=== PATIENT | female | born 1950 | race Caucasian/White ===

== ENCOUNTER → 2021-03-20 | Outpatient (CLI) | payer MEDICARE ==
--- NOTE | 2021-03-20 08:53 | NM ---
EXAMINATION TYPE: NM hepatobiliary w CCK DATE OF EXAM: 03/20/2021 COMPARISON: Ultrasound 06/18/2016 HISTORY: Biliary dyskinesia TECHNIQUE: After the intravenous administration of 4.4 mCi Tc 99m Mebrofenin hepatobiliary scintigrap hy is performed. Immediate images post injection. FINDINGS: There is satisfactory initial accumulation of tracer by the liver. The gallbladder is visualized wit hin 2 minutes. The small bowel activity is noted within 20 minutes. At one hour CCK was administere d, patient was injected with 1.6 mcg of Kinevac, and gallbladder ejection fraction is calculated at 9 5 %, in the normal range. Therefore there is no scintigraphic evidence of cystic or common bile duct obstruction to suggest acute cholecystitis or gallbladder dyskinesia. IMPRESSION: Exam is within normal limits.
== END | disposition home or self-care (01) ==
LOC: RADNMMAIN 06:42
PROVIDERS: ATTEND Surgery
DX: K82.8 Other specified diseases of gallbladder (principal)
CPT/HCPCS: 78227; A9537; J2805

== ENCOUNTER 2021-04-14 06:55 | Day surgery (SDC) | payer MEDICARE ==
[2021-04-10 17:13] VITALS: BMI 34.0
[~2021-04-14 06:55] MED LIST: ACETAMINOPHEN TAB 500 MG TAB PO PRN; CLINDAMYCIN 900 MG in DEXTROSE 5% IN WATER 50 ML IVPB PRN; GENTAMICIN 400 MG in SODIUM CHLORIDE 0.9% 100 ML IVPB ONE; HEPARIN SODIUM,PORCINE/PF 5,000 UNIT/0.5 ML SYRINGE SQ PRN; LACTATED RINGERS 1,000 ML IV SCH; LIDOCAINE 1% (10MG/ML) FOR IV START INTRADERMA PRN
[2021-04-14 07:28] VITALS: RESP 16
[2021-04-14] MEDS ORDERED: ONDANSETRON 4 MG/2 ML VIAL ONE (07:47)
[2021-04-14] MEDS ORDERED: DEXAMETHASONE SOD PHOSPHATE 4 MG/ML 1 ML VIAL IVP ONE (08:07)
--- NOTE | 2021-04-14 08:33 | P.GSHP ---
History of Present Illness H&P Date: 04/14/21 Chief Complaint: Right upper quadrant pain This a 70-year-old female who presents today for laparoscopic cholecystectomy. Patient's complaints were quadrant pain. Her recent HIDA scan shows an elevated ejection fraction consistent with chronic cholecystitis. And biliary d ysfunction. Past Medical History Past Medical History: Asthma, Chest Pain / Angina, COPD, Fibromyalgia, GERD/Reflux, Hyperlipidemia, Hypertension, Liver Disease, Musculoskeletal Disorder, Osteoarthritis (OA), Seizure Disorder, Sleep Apnea/CPAP/BIPAP, Thyroid Disorder Additional Past Medical History / Comment(s): Heart murmur, leaky valve. Vertigo, Lt ear [facility]. Hypothyroid, Fatty liver, "kidney failure 08/2019." Last seizure 2016. O2 @ 3-4 L HS. Chronic back pain, hx injections. Edema BLE. History of Any Multi-Drug Resistant Organisms: None Reported Past Surgical History: Appendectomy, Back Surgery, Breast Surgery, Heart Catheterization, Hysterectomy, Joint Replacement, Orthopedic Surgery Additional Past Surgical History / Comment(s): abd adhesion repair x 3, breast lumpectomies for blood clots 1974 in office, back injections Back surgery x2, Cervical fusion 2017. Lt Total shoulder, bilat Total knees. Past Anesthesia/Blood Transfusion Reactions: No Reported Reaction Additional Past Anesthesia/Blood Transfusion Reaction / Comment(s): STATES SHE IS CLAUSTROPHOBIC Smoking Status: Former smoker - Past Family History Father Family Medical History: Cancer, Diabetes Mellitus, Renal Disease Additional Family Medical History / Comment(s): Passed from renal failure in 1995 Mother Family Medical History: Blood Disorder, CVA/TIA, Diabetes Mellitus Additional Family Medical History / Comment(s): Passed from anemia in 1998 Brother(s) Family Medical History: Coronary Artery Disease (CAD), Diabetes Mellitus Additional Family Medical History / Comment(s): post op from triple bypass surgery in 1994 Sister(s) Family Medical History: Cancer Additional Family Medical History / Comment(s): from esophagus cancer in Sep 2013 Medications and Allergies Home Medications Medication Instructions Recorded Confirmed Type Albuterol Sulfate [Proair Hfa] 2 puff INHALATION Q4HR PRN 12/28/13 04/10/21 History Atenolol 50 mg PO DAILY@1200 12/28/13 04/10/21 History Levothyroxine Sodium [Synthroid] 88 mcg PO QAM 12/28/13 04/10/21 History Methylphenidate HCl [Ritalin] 20 mg PO 0300,1500 12/28/13 04/10/21 History Atorvastatin [Lipitor] 40 mg PO HS 05/09/15 04/10/21 History Potassium Chloride [K-Tab ER] 10 meq PO DAILY@1200 05/09/15 04/10/21 History Vitamin B Complex 1 each PO DAILY 05/09/15 04/10/21 History amLODIPine [Norvasc] 5 mg PO HS 05/09/15 04/10/21 History Acetaminophen [Tylenol Extra 500 mg PO DIRECTED PRN 04/10/21 04/10/21 History Strength] Diclofenac Sodium [Voltaren] 75 mg PO BID 04/10/21 04/10/21 History Estradiol [Estrace] 2 mg PO DAILY 04/10/21 04/10/21 History Ferrous Sulfate [Feosol] 325 mg PO DAILY@1200 04/10/21 04/10/21 History Furosemide [Lasix] 20 mg PO DAILY 04/10/21 04/10/21 History HYDROcodone/APAP 10-325MG [[place] 1 tab PO QID 04/10/21 04/10/21 History 10] Isosorbide Mononitrate ER [Imdur] 30 mg PO DAILY 04/10/21 04/10/21 History LORazepam [Ativan] 1 mg PO BID PRN 04/10/21 04/10/21 History Meclizine [Antivert] 25 mg PO TID 04/10/21 04/10/21 History Multivitamins, Thera [Multivitamin 1 tab PO DAILY 04/10/21 04/10/21 History (formulary)] Nitroglycerin Sl Tabs [Nitrostat] 0.4 mg SUBLINGUAL Q5M PRN 04/10/21 04/10/21 History Oxybutynin Chloride 5 mg PO BID 04/10/21 04/10/21 History Pantoprazole Sodium [Protonix] 40 mg PO DAILY 04/10/21 04/10/21 History Venlafaxine HCl [Effexor] 37.5 mg PO HS 04/10/21 04/10/21 History busPIRone HCL [Buspar] 7.5 mg PO TID 04/10/21 04/10/21 History cloNIDine HCL [Catapres] 0.2 mg PO TID 04/10/21 04/10/21 History tiZANidine [Zanaflex] 4 mg PO BID PRN 04/10/21 04/10/21 History traZODone HCL 50 - 1,000 mg PO HS PRN 04/10/21 04/10/21 History Allergies Allergy/AdvReac Type Severity Reaction Status Date / Time Penicillins Allergy Dyspnea, Verified 04/14/21 07:22 RASH basil AdvReac Dyspnea Verified 04/14/21 07:22 gabapentin [From Neurontin] AdvReac Hallucinati Verified 04/14/21 07:22 ons RUBBING ALCOHOL AdvReac Unknown Dyspnea IF Uncoded 04/14/21 07:22 SHE INHALES IT. powder in gloves AdvReac Dyspnea Uncoded 04/14/21 07:22 Surgical - Exam Vital Signs Temp Pulse Resp BP Pulse Ox 97.4 F L 64 16 173/79 98 04/14/21 07:27 04/14/21 07:27 04/14/21 07:27 04/14/21 07:27 04/14/21 07:27 - General well developed, well nourished, no distress - Eyes PERRL - ENT normal pinna - Neck no masses - Respiratory normal expansion - Cardiovascular Rhythm: regular - Abdomen Abdomen: soft, non tender Assessment and Plan Assessment: Right upper quadrant pain Abnormal HIDA scan Chronic cystitis We'll perform laparoscopic cholecystectomy
[2021-04-14] MEDS ORDERED: fentaNYL (PF) 50 MCG/ML 2 ML AMP ONE (08:59)
[2021-04-14] MEDS ORDERED: KETOROLAC 15 MG/ML 1 ML VIAL ONE (08:59)
[2021-04-14] MEDS ORDERED: SUCCINYLCHOLINE CHLORIDE 100 MG/5 ML SYR IV ONE (08:59)
[2021-04-14] MEDS ORDERED: PROPOFOL 10 MG/ML 20 ML VIAL IV ONE (08:59)
[2021-04-14] MEDS ORDERED: MIDAZOLAM 2 MG/2 ML VIAL ONE (08:59)
[2021-04-14] MEDS ORDERED: HYDROmorphone (PF) 1 MG/ML ONE (08:59)
[2021-04-14] MEDS ORDERED: NEOSTIGMINE 1 MG/ML 10 ML VIAL ONE (08:59)
[2021-04-14] MEDS ORDERED: GLYCOPYRROLATE 0.2 MG/ML 2 ML VIAL ONE (08:59)
[2021-04-14] MEDS ORDERED: LIDOCAINE 1% INJ 10MG/ML (20 ML MDV) ONE (08:59)
[2021-04-14] MEDS ORDERED: ROCURONIUM 10 MG/ML (5 ML VIAL) IV ONE (08:59)
[2021-04-14] MEDS ORDERED: BUPIVACAINE (PF) 0.5% 30 ML VIAL SQ ONE ×2 (09:09→09:34)
--- NOTE | 2021-04-14 09:54 | P.OP ---
Date of Procedure: 04/14/21 Preoperative Diagnosis: Cholecystitis Postoperative Diagnosis: Cholecystitis Procedure(s) Performed: Laparoscopic cholecystectomy Anesthesia: SANYA Surgeon: Galo Lacey Estimated Blood Loss (ml): 5 Pathology: other (Gallbladder) Condition: stable Disposition: PACU Description of Procedure: The patient was placed on the operating table. The patient received a general endotracheal tube anesthesia. The patients abdomen was prepped and draped in the usual sterile fashion. Through an infraumbilical stab incision, the fascia of the anterior abdominal wall was grasped with a pair of Kochers and then the Veress needle was placed in the peritoneal cavity. Position of the Veress needle was confirmed with positive drop test. The abdomen was then insufflated. After adequate insufflation, the 10 mm trocar was placed in the peritoneal cavity. Following this the laparoscope was placed in the peritoneal cavity. The patient was placed in the head-up, right side up position and then a 5 mm trocar was placed in the right lateral and right subcostal position under direct visualization. A 8 mm trocar was placed in the epigastric position. The gallbladder was grasped in the fundus and infundibulum. Traction on the gallbladder was placed in the lateral and the cephalad positions. The triangle of Calot was visualized.. The cystic duct was bluntly dissected until the union of the cystic duct and common bile duct was seen. A critical view of safety was achieved. The cystic duct was then divided and sealed with the Harmonic scissors. A PDS Endoloop was then placed throughout the cystic duct stump. The cystic artery divided and sealed with the Harmonic scissors. The gallbladder was then removed from the liver bed using Harmonic scissors. The gallbladder was then extracted through the epigastric port site. Operative field was checked for any bleeding spots and Harmonic scissors was used to coagulate the liver bed. The abdomen was irrigated. The trocars were removed. The skin was closed using interrupted 3-0 Vicryl suture. Dermabond dressing were applied. The patient tolerated the procedure well.
[2021-04-14 10:10] VITALS: TEMP 97
[2021-04-14] MEDS ORDERED: HYDROmorphone 0.5 MG/0.5 ML SYRINGE IVP ONE ×2 (10:25→10:45)
[2021-04-14] MEDS ORDERED: hydrALAZINE HCL 20 MG/ML 1 ML VIAL ONE (10:52)
[2021-04-14] MEDS ORDERED: hydrALAZINE HCL 20 MG/ML 1 ML VIAL IV ONE (10:54)
[2021-04-14 11:32] VITALS: PULSE 81
[2021-04-14 12:14] VITALS: BP 193/85
[2021-04-14] MEDS ORDERED: GENTAMICIN 80 MG/2 ML (MDV) VIAL ONE (23:59)
[2021-04-14] MEDS ORDERED: SODIUM CHLORIDE 0.9% 100 ML BAG ONE (23:59)
== END 2021-04-14 12:21 | disposition home or self-care (01) ==
LOC: OR 06:55
PROVIDERS: ATTEND Surgery
DX: K81.1 Chronic cholecystitis (principal); M19.90 Unspecified osteoarthritis, unspecified site; M79.7 Fibromyalgia; N30.20 Other chronic cystitis without hematuria; Z79.1 Long term (current) use of non-steroidal anti-inflammatories (NSAID); Z79.899 Other long term (current) drug therapy; Z82.49 Family history of ischemic heart disease and other diseases of the circulatory system; Z83.3 Family history of diabetes mellitus; K76.0 Fatty (change of) liver, not elsewhere classified; K21.9 Gastro-esophageal reflux disease without esophagitis; J44.9 Chronic obstructive pulmonary disease, unspecified; I10 Essential (primary) hypertension; G40.909 Epilepsy, unspecified, not intractable, without status epilepticus; E78.5 Hyperlipidemia, unspecified; E03.9 Hypothyroidism, unspecified; Z87.891 Personal history of nicotine dependence; Z88.0 Allergy status to penicillin; Z88.8 Allergy status to other drugs, medicaments and biological substances; Z90.49 Acquired absence of other specified parts of digestive tract
CPT/HCPCS: 47562; 88304; J2250; J0360; J1100; J2710; J2405; J2001; J3010; J1580; J1170 ×2; J1885; J0330; J2704; J1644

== ENCOUNTER → 2021-10-06 | Outpatient (CLI) | payer MEDICARE ==
--- NOTE | 2021-10-06 08:33 | CT ---
EXAMINATION TYPE: CT lumbar spine wo con DATE OF EXAM: 10/06/2021 COMPARISON: None HISTORY: Lumbar disc disease CT DLP: 737.[address] of the lumbar spine was performed. Bone and soft tissue window settings are submitted as well as coronal and sagittal reconstructions. L1-L2: Normal disc space height. No disc herniation protrusion or central stenosis. No facet joint arthropathy. No evidence for foraminal encroachment. L2-L3: Severe degenerative disc space narrowing with endplate sclerosis as well as ventral and dorsal spondylosis. Hypertrophic change of the facet joints and hypertrophy of ligamentum flavum as well as associated disc bulging resulting in mild central stenosis. L3-L4: Severe degenerative disc space narrowing with endplate sclerosis as well as ventral and dorsal spondylosis. Hypertrophic change of the facet joints and hypertrophy of ligamentum flavum as well as associated disc bulging resulting in mild central stenosis. L4-L5: Postlaminectomy change and posterior stabilizing metallic prosthesis. Severe degenerative disc space narrowing with endplate sclerosis as well as ventral and dorsal spondylosis. Hypertrophic zayas ge of the facet joints and hypertrophy of ligamentum flavum as well as associated disc bulging result ing in mild central stenosis. L5-S1: Moderate degenerative disc space narrowing. Left paracentral disc bulge resulting in left late ral recess stenosis and foraminal encroachment. No evidence for central stenosis. No paraspinal masses are identified. Lumbar segments are free if fracture. IMPRESSION: 1. Multilevel degenerative multilevel mild central stenosis. Postoperative changes at L4-5.
== END | disposition home or self-care (01) ==
LOC: RADCTMAIN 07:12
PROVIDERS: ATTEND Family Medicine
DX: M48.061 Spinal stenosis, lumbar region without neurogenic claudication (principal); M51.36 Other intervertebral disc degeneration, lumbar region
CPT/HCPCS: 72131

== ENCOUNTER → 2022-01-28 | Outpatient (CLI) | payer MEDICARE ==
--- NOTE | 2022-01-28 11:46 | MR ---
EXAMINATION TYPE: MR lumbar spine wo/w con DATE OF EXAM: 01/28/2022 COMPARISON: Lumbar MRI dated 01/01/2014 CT 12/10/2021 from outside institution HISTORY: DISC DEGENERATION, LUMBAR REGION TECHNIQUE: Multiplanar, multisequence images of the lumbar spine were acquired without and with 7 mL intravenous Gadavist gadolinium contrast. L1-L2: Normal disc appearance without desiccation. No herniation, protrusion or disc bulging. No ca nal stenosis is present. Foramina are patent bilaterally. L2-L3: Posterior broad-based disc bulge, extension endplate disc complex causes anterior mass effect on the thecal sac. There is facet arthropathy with hypertrophy ligamentum flavum causing some posteri or lateral mass effect on the thecal sac. L3-L4: Posterior broad-based disc bulge causes mild anterior mass effect on the thecal sac. Circumfer ential extension endplate disc complex encroaches upon the inferior aspect of the foramina. There is facet arthropathy with hypertrophy ligamentum flavum causing posterior lateral mass effect on the the [place] sac. L4-L5: Posterior broad-based disc bulge extends circumferentially, endplate disc complex encroaches u brandi the foramina bilaterally, only mild mass effect present at anterior thecal sac. Facet arthropathy change is present, question some encroachment towards the left lateral recess. Suspect some enhancem ent along the nerve root, there is some anterolateral mass effect on the thecal sac towards the left, possible granulation tissue, sagittal image 7 of series 601 shows an oval focus of signal change pos terior to the inferior aspect of the L4 vertebral body, difficult to exclude a sequestered fragment, axial image #10 towards the lateral recess. L5-S1: There is mild posterior broad-based disc bulge. Circumferential extension endplate disc comple x does encroach upon the foramina bilaterally. Facet arthropathy changes are present, there is some e ncroachment on the lateral recess, hypertrophy ligamentum flavum causes some posterior lateral mass e ffect on the thecal sac, laminectomy present on the left. Lumbar segments are intact. No paraspinal masses are identified. Conus medullaris has a normal appe arance. There is no significant spinal stenosis. Lumbar vertebral bodies show preserved height. There is multilevel spondylosis with endplate discogenic marrow signal change, loss of disc height is grea test at L2-3, L3-4 and L4-5. Susceptibility artifact is present posterior to the L4-5 level due to elham sanderson's metallic posterior elements device placement. IMPRESSION: Postop changes, degenerative disc disease, facet arthropathy, multilevel foraminal encroachment as de scribed, granulation tissue, difficult to exclude sequestered fragment posterior to the L4 vertebral body as described
== END | disposition home or self-care (01) ==
LOC: RADMRIMAIN 08:33
PROVIDERS: ATTEND Family Medicine
DX: M51.36 Other intervertebral disc degeneration, lumbar region (principal); M47.816 Spondylosis without myelopathy or radiculopathy, lumbar region
CPT/HCPCS: 72158; A9585

== ENCOUNTER 2022-03-05 02:14 | Emergency (ER) | payer MEDICARE ==
[2022-03-05 02:29] VITALS: RESP 18; TEMP 97
[2022-03-05] MEDS ORDERED: SODIUM CHLORIDE 0.9% 1,000 ML IV STA (03:07)
--- NOTE | 2022-03-05 03:10 | ED ---
Recheck HPI - General Chief Complaint: Recheck/Abnormal Lab/Rx Stated Complaint: Low BP, confusion Time Seen by Provider: 03/05/22 02:38 Source: patient, RN notes reviewed, old records reviewed Mode of arrival: ambulatory Limitations: no limitations - History of Present Illness Initial Comments: This is a 69-year-old female to the emergency department for evaluation patient is rechecking for abnormal blood pressure. Patient presents today for evaluat ion of both high and low blood pressures. Patient has no recent change in medications. Occasionally does get headaches blurry vision and dizziness. She feels like she was given a pass out feels like she was given a pass out earlier today. Prior to arrival she had no chest pain or shortness of breath no current chest pain or shortness of breath especially MD Complaint: other (Abnormal blood pressure) -: days(s) Returns Today for: persistent/worsening pain related to initial visit Symptoms Since Prior Visit: worsening pain Context: planned re-check Associated Symptoms: none Treatments Prior to Arrival: Given Pain Meds on - Related Data Home Medications Medication Instructions Recorded Confirmed Albuterol Sulfate [Proair Hfa] 2 puff INHALATION Q4HR PRN 12/28/13 04/10/21 Atenolol 50 mg PO DAILY@1200 12/28/13 04/10/21 Levothyroxine Sodium [Synthroid] 88 mcg PO QAM 12/28/13 04/10/21 Methylphenidate HCl [Ritalin] 20 mg PO 0300,1500 12/28/13 04/10/21 Atorvastatin [Lipitor] 40 mg PO HS 05/09/15 04/10/21 Potassium Chloride [K-Tab ER] 10 meq PO DAILY@1200 05/09/15 04/10/21 Vitamin B Complex 1 each PO DAILY 05/09/15 04/10/21 amLODIPine [Norvasc] 5 mg PO HS 05/09/15 04/10/21 Acetaminophen [Tylenol Extra 500 mg PO DIRECTED PRN 04/10/21 04/10/21 Strength] Diclofenac Sodium [Voltaren] 75 mg PO BID 04/10/21 04/10/21 Ferrous Sulfate [Feosol] 325 mg PO DAILY@1200 04/10/21 04/10/21 Furosemide [Lasix] 20 mg PO DAILY 04/10/21 04/10/21 HYDROcodone/APAP 10-325MG [[place] 1 tab PO QID 04/10/21 04/10/21 10] Isosorbide Mononitrate ER [Imdur] 30 mg PO DAILY 04/10/21 04/10/21 LORazepam [Ativan] 1 mg PO BID PRN 04/10/21 04/10/21 Meclizine [Antivert] 25 mg PO TID 04/10/21 04/10/21 Multivitamins, Thera [Multivitamin 1 tab PO DAILY 04/10/21 04/10/21 (formulary)] Nitroglycerin Sl Tabs [Nitrostat] 0.4 mg SUBLINGUAL Q5M PRN 04/10/21 04/10/21 Oxybutynin Chloride 5 mg PO BID 04/10/21 04/10/21 Pantoprazole Sodium [Protonix] 40 mg PO DAILY 04/10/21 04/10/21 Venlafaxine HCl [Effexor] 37.5 mg PO HS 04/10/21 04/10/21 busPIRone HCL [Buspar] 7.5 mg PO TID 04/10/21 04/10/21 cloNIDine HCL [Catapres] 0.2 mg PO TID 04/10/21 04/10/21 estradioL [Estrace] 2 mg PO DAILY 04/10/21 04/10/21 tiZANidine [Zanaflex] 4 mg PO BID PRN 04/10/21 04/10/21 traZODone HCL 50 - 1,000 mg PO HS PRN 04/10/21 04/10/21 Previous Rx's Medication Instructions Recorded Acetaminophen Tab [Tylenol] 650 mg PO Q6H #30 tab 04/14/21 Docusate [Colace] 100 mg PO BID #20 capsule 04/14/21 Ibuprofen [Motrin] 600 mg PO Q6HR PRN #40 tab 04/14/21 oxyCODONE HCL [OxyIR] 5 mg PO Q6H PRN 3 Days #10 tab 04/14/21 Allergies Allergy/AdvReac Type Severity Reaction Status Date / Time Penicillins Allergy Dyspnea, Verified 03/05/22 02:24 RASH basil AdvReac Dyspnea Verified 03/05/22 02:24 gabapentin [From Neurontin] AdvReac Hallucinati Verified 03/05/22 02:24 ons RUBBING ALCOHOL AdvReac Unknown Dyspnea IF Uncoded 03/05/22 02:24 SHE INHALES IT. powder in gloves AdvReac Dyspnea Uncoded 03/05/22 02:24 Review of Systems ROS Statement: Those systems with pertinent positive or pertinent negative responses have been documented in the HPI. ROS Other: All systems not noted in ROS Statement are negative. Past Medical History Past Medical History: Asthma, Chest Pain / Angina, COPD, Fibromyalgia, GERD/Reflux, Hyperlipidemia, Hypertension, Liver Disease, Musculoskeletal Disorder, Osteoarthritis (OA), Seizure Disorder, Sleep Apnea/CPAP/BIPAP, Thyroid Disorder Additional Past Medical History / Comment(s): Heart murmur, leaky valve. Vertigo, Lt ear [place]. Hypothyroid, Fatty liver, "kidney failure 08/2019." Last seizure 2016. O2 @ 3-4 L HS. Chronic back pain, hx injections. Edema BLE. History of Any Multi-Drug Resistant Organisms: None Reported Past Surgical History: Appendectomy, Back Surgery, Breast Surgery, Heart Catheterization, Hysterectomy, Joint Replacement, Orthopedic Surgery Additional Past Surgical History / Comment(s): abd adhesion repair x 3, breast lumpectomies for blood clots 1974 in office, back injections Back surgery x2, Cervical fusion 2017. Lt Total shoulder, bilat Total knees. Past Anesthesia/Blood Transfusion Reactions: No Reported Reaction Additional Past Anesthesia/Blood Transfusion Reaction / Comment(s): STATES SHE IS CLAUSTROPHOBIC Past Psychological History: ADD/ADHD, Anxiety, Depression Smoking Status: Former smoker Past Alcohol Use History: None Reported Past Drug Use History: None Reported - Past Family History Father Family Medical History: Cancer, Diabetes Mellitus, Renal Disease Additional Family Medical History / Comment(s): Passed from renal failure in 1995 Mother Family Medical History: Blood Disorder, CVA/TIA, Diabetes Mellitus Additional Family Medical History / Comment(s): Passed from anemia in 1998 Brother(s) Family Medical History: Coronary Artery Disease (CAD), Diabetes Mellitus Additional Family Medical History / Comment(s): post op from triple bypass surgery in 1994 Sister(s) Family Medical History: Cancer Additional Family Medical History / Comment(s): from esophagus cancer in Sep 2013 General Exam Limitations: no limitations General appearance: alert, in no apparent distress Head exam: Present: atraumatic, normocephalic, normal inspection Eye exam: Present: normal appearance, PERRL, EOMI. Absent: scleral icterus, conjunctival injection, periorbital swelling ENT exam: Present: normal exam, mucous membranes moist Neck exam: Present: normal inspection. Absent: tenderness, meningismus, lym phadenopathy Respiratory exam: Present: normal lung sounds bilaterally. Absent: respiratory distress, wheezes, rales, rhonchi, stridor Cardiovascular Exam: Present: regular rate, normal rhythm, normal heart sounds. Absent: systolic murmur, diastolic murmur, rubs, gallop, clicks GI/Abdominal exam: Present: soft, normal bowel sounds. Absent: distended, tenderness, guarding, rebound, rigid Extremities exam: Present: normal inspection, full ROM, normal capillary refill. Absent: tenderness, pedal edema, joint swelling, calf tenderness Back exam: Present: normal inspection Neurological exam: Present: alert, oriented X3, CN II-XII intact Psychiatric exam: Present: normal affect, normal mood Skin exam: Present: warm, dry, intact, normal color. Absent: rash Course Vital Signs 03/05/22 03/05/22 03/05/22 02:24 03:48 05:07 Temperature 97.0 F L 97.0 F L Pulse Rate 64 75 Respiratory 18 18 18 Rate Blood Pressure 154/72 130/74 113/65 O2 Sat by Pulse 98 98 Oximetry - Reevaluation(s) Reevaluation #1: 03/05/22 03:10 Medical record is reviewed Reevaluation #2: 03/05/22 Patient informed of results and questions answered Reevaluation #3: 03/05/22 Patient feels improved here in the ER Medical Decision Making - Medical Decision Making 71 female to the emergency department for evaluation of high blood pressure. Patient given long conversation regarding elevated blood pressure treatment. Patient will be discharged home to follow primary care - Lab Data Result diagrams: 03/05/22 03:30 03/05/22 03:30 Lab Results 03/05/22 03/05/22 03/05/22 Range/Units 03:30 03:30 03:30 WBC 10.3 (3.8-10.6) k/uL RBC 4.28 (3.80-5.40) m/uL Hgb 13.4 (11.4-16.0) gm/dL Hct 39.2 (34.0-46.0) % MCV 91.6 (80.0-100.0) fL MCH 31.3 (25.0-35.0) pg MCHC 34.1 (31.0-37.0) g/dL RDW 13.3 (11.5-15.5) % Plt Count 292 (150-450) k/uL MPV 7.5 Neutrophils % 77 % Lymphocytes % 14 % Monocytes % 4 % Eosinophils % 3 % Basophils % 0 % Neutrophils # 7.9 H (1.3-7.7) k/uL Lymphocytes # 1.5 (1.0-4.8) k/uL Monocytes # 0.4 (0-1.0) k/uL Eosinophils # 0.3 (0-0.7) k/uL Basophils # 0.0 (0-0.2) k/uL Sodium 134 L (137-145) mmol/L Potassium 4.8 (3.5-5.1) mmol/L Chloride 102 (98-107) mmol/L Carbon Dioxide 24 (22-30) mmol/L Anion Gap 8 mmol/L BUN 44 H (7-17) mg/dL Creatinine 1.62 H (0.52-1.04) mg/dL Est GFR (CKD-EPI)AfAm 37 (>60 ml/min/1.73 sqM) Est GFR (CKD-EPI)NonAf 32 (>60 ml/min/1.73 sqM) Glucose 116 H (74-99) mg/dL Calcium 9.4 (8.4-10.2) mg/dL Phosphorus 5.7 H (2.5-4.5) mg/dL Magnesium 1.6 (1.6-2.3) mg/dL Total Bilirubin 0.5 (0.2-1.3) mg/dL AST 27 (14-36) U/L ALT 16 (4-34) U/L Alkaline Phosphatase 67 (38-126) U/L NT-Pro-B Natriuret Pep 399 pg/mL Total Protein 6.7 (6.3-8.2) g/dL Albumin 4.1 (3.5-5.0) g/dL Disposition Clinical Impression: Hypertension Disposition: HOME SELF-CARE Condition: Good Instructions (If sedation given, give patient instructions): Hypertension (ED) Is patient prescribed a controlled substance at d/c from ED?: No Referrals: Panfilo Riggs MD [Primary Care Provider] - 1-2 days Time of Disposition: 05:30
--- NOTE | 2022-03-05 03:33 | CT ---
EXAM: CT Head Without Intravenous Contrast CLINICAL HISTORY: ITS.REASON CT Reason: weakness TECHNIQUE: Axial computed tomography images of the head/brain without intravenous contrast. CTDI is 49.27 mGy and DLP is 1111.4 mGy-cm. This CT exam was performed using one or more of the following dose reduction techniques: automated exposure control, adjustment of the mA and/or kV according to patient size, and/or use of iterative reconstruction technique. COMPARISON: No relevant prior studies available. FINDINGS: Brain: Mild volume loss with prominent ventricles and sulci. Mild periventricular white matter hypoattenuation likely reflects chronic small vessel disease. No hemorrhage. Ventricles: Unremarkable. No ventriculomegaly. Bones/joints: Unremarkable. No acute fracture. Soft tissues: Unremarkable. Sinuses: Mild paranasal sinus mucosal thickening. No fluid levels. Mastoid air cells: Unremarkable as visualized. No mastoid effusion. IMPRESSION: No evidence of acute intracranial abnormality.
[2022-03-05 03:35] LABS: Basophils % (A) 0 %; Eosinophils # (A) 0.3 k/uL (0-0.7); Eosinophils % (A) 3 %; HCT 39.2 % (34.0-46.0); HGB 13.4 gm/dL (11.4-16.0); Lymphocytes # (A) 1.5 k/uL (1.0-4.8); Lymphocytes % (A) 14 %; MCH 31.3 pg (25.0-35.0); MCHC 34.1 g/dL (31.0-37.0); MCV 91.6 fL (80.0-100.0); Mean Platelet Volume 7.5; Monocytes # (A) 0.4 k/uL (0-1.0); Monocytes % (A) 4 %; Neutrophils # (A) 7.9 k/uL (1.3-7.7); Neutrophils % (A) 77 %; Platelet Count 292 k/uL (150-450); RBC 4.28 m/uL (3.80-5.40); RDW 13.3 % (11.5-15.5); WBC 10.3 k/uL (3.8-10.6)
[2022-03-05 04:20] LABS: Albumin 4.1 g/dL (3.5-5.0); Calcium 9.4 mg/dL (8.4-10.2); Total Bilirubin 0.5 mg/dL (0.2-1.3); Total Protein 6.7 g/dL (6.3-8.2)
[2022-03-05 04:30] LABS: Magnesium 1.6 mg/dL (1.6-2.3); Phosphorus 5.7 mg/dL (2.5-4.5); Potassium 4.8 mmol/L (3.5-5.1)
[2022-03-05 05:09] VITALS: BP 113/65; PULSE 75
== END 2022-03-05 05:08 | disposition home or self-care (01) ==
LOC: EC 02:14
DX: I10 Essential (primary) hypertension (principal); J44.9 Chronic obstructive pulmonary disease, unspecified; Z79.83 Long term (current) use of bisphosphonates; K21.9 Gastro-esophageal reflux disease without esophagitis; E07.9 Disorder of thyroid, unspecified; Z79.899 Other long term (current) drug therapy; E78.5 Hyperlipidemia, unspecified; Z87.891 Personal history of nicotine dependence; Z88.0 Allergy status to penicillin; Z88.9 Allergy status to unspecified drugs, medicaments and biological substances; Z91.09 Other allergy status, other than to drugs and biological substances
CPT/HCPCS: 36415; 70450; 80053; 83735; 83880; 84100; 85025; 96360; 99284

== ENCOUNTER 2022-07-09 08:42 | Day surgery (SDC) | payer MEDICARE ==
[~2022-07-09 08:42] MED LIST changes: -ACETAMINOPHEN TAB 500 MG TAB PO PRN; -CLINDAMYCIN 900 MG in DEXTROSE 5% IN WATER 50 ML IVPB PRN; -GENTAMICIN 400 MG in SODIUM CHLORIDE 0.9% 100 ML IVPB ONE; -HEPARIN SODIUM,PORCINE/PF 5,000 UNIT/0.5 ML SYRINGE SQ PRN
[2022-07-09 09:07] VITALS: RESP 16; TEMP 97.7
--- NOTE | 2022-07-09 09:39 | P.GSHP ---
History of Present Illness H&P Date: 07/09/22 Chief Complaint: History of diarrhea Is a 71-year-old female who presents today for colonoscopy. Patient points of diarrhea. Past Medical History Past Medical History: Asthma, Chest Pain / Angina, COPD, Fibromyalgia, GERD/Reflux, Hyperlipidemia, Hypertension, Liver Disease, Musculoskeletal Disorder, Osteoarthritis (OA), Seizure Disorder, Sleep Apnea/CPAP/BIPAP, Thyroid Disorder Additional Past Medical History / Comment(s): Heart murmur, leaky valve. Vertigo, Lt ear [place]I. Hypothyroid, Fatty liver, "kidney failure 08/2019." Last seizure 2016. O2 @ 3-4 L HS. Chronic back pain, hx injections. Edema BLE. History of Any Multi-Drug Resistant Organisms: None Reported Past Surgical History: Appendectomy, Back Surgery, Breast Surgery, Heart Catheterization, Hysterectomy, Joint Replacement, Orthopedic Surgery Additional Past Surgical History / Comment(s): abd adhesion repair x 3, breast lumpectomies for blood clots 1974 in office, back injections Back surgery x2, Cervical fusion 2017. Lt Total shoulder, bilat Total knees. Past Anesthesia/Blood Transfusion Reactions: No Reported Reaction Additional Past Anesthesia/Blood Transfusion Reaction / Comment(s): STATES SHE IS CLAUSTROPHOBIC Smoking Status: Former smoker - Past Family History Father Family Medical History: Cancer, Diabetes Mellitus, Renal Disease Additional Family Medical History / Comment(s): Passed from renal failure in 1995 Mother Family Medical History: Blood Disorder, CVA/TIA, Diabetes Mellitus Additional Family Medical History / Comment(s): Passed from anemia in 1998 Brother(s) Family Medical History: Coronary Artery Disease (CAD), Diabetes Mellitus Additional Family Medical History / Comment(s): post op from triple bypass surgery in 1994 Sister(s) Family Medical History: Cancer Additional Family Medical History / Comment(s): from esophagus cancer in Sep 2013 Medications and Allergies Home Medications Medication Instructions Recorded Confirmed Type Atenolol 100 mg PO BID 12/28/13 07/07/22 History Methylphenidate HCl [Ritalin] 20 mg PO BID@0900,1400 12/28/13 07/07/22 History Atorvastatin [Lipitor] 40 mg PO HS 05/09/15 07/07/22 History Ferrous Sulfate [Iron (65 MG 325 mg PO DAILY 04/10/21 07/07/22 History Elemental)] LORazepam [Ativan] 1 mg PO HS 04/10/21 07/07/22 History Meclizine [Antivert] 25 mg PO BID 04/10/21 07/07/22 History Nitroglycerin Sl Tabs [Nitrostat] 0.4 mg SL Q5M PRN 04/10/21 07/07/22 History Oxybutynin Chloride 5 mg PO BID 04/10/21 07/07/22 History busPIRone HCL [Buspar] 7.5 mg PO TID 04/10/21 07/07/22 History estradioL [Estrace] 2 mg PO DAILY 04/10/21 07/07/22 History tiZANidine [Zanaflex] 4 mg PO DAILY PRN 04/10/21 07/07/22 History traZODone HCL 50 mg PO DAILY PRN 04/10/21 07/07/22 History Doxycycline Hyclate 100 mg PO BID 04/06/22 07/07/22 History Gabapentin [Neurontin] 100 mg PO TID 04/06/22 07/07/22 History Levothyroxine Sodium [Synthroid] 88 mcg PO DAILY 04/06/22 07/07/22 History Losartan [Cozaar] 50 mg PO DAILY 04/06/22 07/07/22 History Spironolactone 50 mg PO TID 04/06/22 07/07/22 History cloNIDine HCL [Catapres] 0.1 mg PO TID 04/06/22 07/07/22 History oxyCODONE-APAP 7.5-325MG [Percocet 1 tab PO QID PRN 04/06/22 07/07/22 History 7.5-325 mg] Albuterol Sulfate [Ventolin HFA] 1 - 2 puff INHALATION Q6H PRN 07/07/22 07/07/22 History Magnesium Oxide [Mag-Ox] 400 mg PO DAILY 07/07/22 07/07/22 History Allergies Allergy/AdvReac Type Severity Reaction Status Date / Time Penicillins Allergy Dyspnea, Verified 07/09/22 08:56 RASH basil AdvReac Dyspnea Verified 07/09/22 08:56 duloxetine [From Cymbalta] AdvReac Unknown Verified 07/09/22 08:58 gabapentin [From Neurontin] AdvReac Hallucinati Verified 07/09/22 08:56 ons RUBBING ALCOHOL AdvReac Unknown Dyspnea IF Uncoded 07/09/22 08:56 SHE INHALES IT. powder in gloves AdvReac Dyspnea Uncoded 07/09/22 08:56 Surgical - Exam Vital Signs Temp Pulse Resp BP Pulse Ox 97.7 F 54 L 16 142/78 96 07/09/22 09:04 07/09/22 09:04 07/09/22 09:04 07/09/22 09:04 07/09/22 09:04 - General well developed, well nourished, no distress - Eyes PERRL - ENT normal pinna - Neck no masses - Respiratory normal expansion - Cardiovascular Rhythm: regular - Abdomen Abdomen: soft, non tender Assessment and Plan Assessment: History of diarrhea. We'll perform colonoscopy.
[2022-07-09] MEDS ORDERED: PROPOFOL 10 MG/ML 20 ML VIAL IV ONE (09:41)
[2022-07-09] MEDS ORDERED: LIDOCAINE 2% INJ 20 MG/ML (2 ML VIAL) ONE (09:41)
--- NOTE | 2022-07-09 10:01 | P.OP ---
Date of Procedure: 07/09/22 Preoperative Diagnosis: Diarrhea Postoperative Diagnosis: External hemorrhoids Rectal biopsy pathology pending Procedure(s) Performed: Colonoscopy Anesthesia: MAC Surgeon: Galo Lacey Pathology: other (Rectal biopsy) Condition: stable Disposition: PACU Description of Procedure: The patient's placed on the endoscopy table in the lateral position. He received IV sedation. Digital rectal exam was performed. This revealed external hemorrhoids. The flexible colonoscope was then placed patient anus and passed throughout the entire colon. The ileocecal valve was visualized. Cecum appeared normal. The right colon, transverse colon appeared normal. In the descending; a few scattered diverticuli. The scope was then brought back the rectum. The rectum appeared normal however due to the patient's symptoms of diarrhea a random rectal biopsies performed. The scope was withdrawn for patient. External hemorrhoids were noted.
[2022-07-09 10:15] VITALS: BP 142/73; PULSE 65
== END 2022-07-09 11:21 | disposition home or self-care (01) ==
LOC: ORWHC2ENDO 08:42
PROVIDERS: ATTEND Surgery
DX: K64.4 Residual hemorrhoidal skin tags (principal); R19.7 Diarrhea, unspecified; J44.9 Chronic obstructive pulmonary disease, unspecified; M79.7 Fibromyalgia; I10 Essential (primary) hypertension; E78.5 Hyperlipidemia, unspecified; K21.9 Gastro-esophageal reflux disease without esophagitis; K76.9 Liver disease, unspecified; M19.90 Unspecified osteoarthritis, unspecified site; G40.909 Epilepsy, unspecified, not intractable, without status epilepticus; G47.33 Obstructive sleep apnea (adult) (pediatric); E07.9 Disorder of thyroid, unspecified; R01.1 Cardiac murmur, unspecified; R42 Dizziness and giddiness; N19 Unspecified kidney failure; E03.9 Hypothyroidism, unspecified; K76.0 Fatty (change of) liver, not elsewhere classified; M54.9 Dorsalgia, unspecified; G89.29 Other chronic pain; F40.240 Claustrophobia; Z98.890 Other specified postprocedural states; Z90.49 Acquired absence of other specified parts of digestive tract; Z90.710 Acquired absence of both cervix and uterus; Z95.5 Presence of coronary angioplasty implant and graft; Z87.891 Personal history of nicotine dependence; Z83.3 Family history of diabetes mellitus; Z82.3 Family history of stroke; Z83.2 Family history of diseases of the blood and blood-forming organs and certain disorders involving the immune mechanism; Z80.0 Family history of malignant neoplasm of digestive organs; Z79.899 Other long term (current) drug therapy; Z79.890 Hormone replacement therapy; Z79.51 Long term (current) use of inhaled steroids; Z88.0 Allergy status to penicillin; Z88.8 Allergy status to other drugs, medicaments and biological substances
CPT/HCPCS: 88305; 45380; J2704; J2001

== ENCOUNTER → 2022-09-11 | Outpatient (CLI) | payer MEDICARE ==
--- NOTE | 2022-09-11 08:33 | CT ---
EXAMINATION TYPE: CT thoracic spine wo con DATE OF EXAM: 09/11/2022 COMPARISON: None HISTORY: 71-year-old female M48.062, Back pain, has spinal stenosis-lumbar region TECHNIQUE: Contiguous axial scanning of the thoracic spine without IV contrast. Coronal and sagittal reconstructions performed. CT DLP: 564.0 mGycm Automated exposure control for dose reduction was used. FINDINGS: Partially visualized ACDF lower cervical spine. The inferior screws appear to extend along the C7-T1 disc interspace. Correlate clinically. Scattered facet arthropathy securely along the upper and lower thoracic spine. Mild multilevel degenerative disc disease especially mid and lower thoracic spine. Anterior endplate spondylosis is present with some bridging change scattered throughout. Vertebral body heights are preserved. Trace degenerative grade 1 anterolisthesis T3-T4. Remaining alignment is maintained. Scattered small posterior disc protrusions are present such as that T6-T7, T7-T8, T8-T9, and T10-T11. By CT, no khadijah canal compromise is identified. On the right, facet arthropathy contributes to moderate neural foraminal stenosis at T1-T2 and T2-T3. Also at T8-T9 and T10-T11. On the left, changes contribute to moderate neuroforaminal stenosis at T1-T2, T2-T3, and T10-T11. The chest shows extensive three-vessel coronary artery calcifications and scattered interstitial scar ring especially in the lower lungs. IMPRESSION: 1. PREVIOUS ACDF PARTIALLY VISUALIZED ALONG THE LOWER CERVICAL SPINE. THE INFERIOR SCREWS APPEAR TO E XTEND INTO THE C7-T1 DISC INTERSPACE. CLINICALLY CORRELATE. 2. SCATTERED FACET ARTHROPATHY UPPER AND LOWER THORACIC SPINE WITH DEGENERATIVE TRACE GRADE 1 ANTEROL ISTHESIS AT T3-T4. 3. MILD MULTILEVEL DISC DISEASE ESPECIALLY MID AND LOWER THORACIC SPINE. SOME SCATTERED LEVELS OF ELTON DGING ENDPLATE SPONDYLOSIS IS NOTED. SCATTERED SMALL DISC PROTRUSIONS ARE ALSO PRESENT. BY CT, NO FRA NK CANAL COMPROMISE IS SEEN. 4. VARIABLE MODERATE NEUROFORAMINAL STENOSES OUTLINED ABOVE.
--- NOTE | 2022-09-11 08:43 | CT ---
EXAMINATION TYPE: CT lumbar spine wo con DATE OF EXAM: 09/11/2022 COMPARISON: Outside CT 12/10/2021 HISTORY: 71-year-old female M48.062 spinal stenosis-lumbar region. Back pain, has spinal stenosis-clare mbar region TECHNIQUE: Contiguous axial scanning of the lumbar spine without IV contrast. Coronal and sagittal re constructions performed. CT DLP: 648.20 mGycm Automated exposure control for dose reduction was used. FINDINGS: Redemonstrated interspinous fixation device L4-L5. Posterior midline soft tissue thickening spanning the L4 and L5 levels likely postoperative scarring. Vertebral body heights are preserved. While alignment is maintained, there is straightening of the no rmal lumbar lordosis. Redemonstrated severe disc/endplate degenerative change from L2 through L5 levels with loss of disc h eight, [id number] abutment, and extensive endplate sclerosis. Scattered ligamentum flavum thickening mid and lower lumbar spine. Additional hypertrophic facet arthropathy throughout. From T12 through L2 levels, no spinal canal neuroforaminal stenosis. At L2-L3, disc osteophyte complex impresses on the ventral thecal sac contributing to mild spinal can al stenosis. There is moderate left greater than right neuroforaminal stenosis. At L3-L4, disc osteophyte complex contributes to mild overall spinal canal stenosis. Along with facet arthropathy, there is moderate to severe right and moderate left neuroforaminal stenosis. At L4-L5, metal artifact limits evaluation. There is disc osteophyte complex with ligamentum flavum a nd hypertrophic facet arthropathy. Suspect a moderate spinal canal stenosis here. There is also sever e bilateral neuroforaminal stenosis. At L5-S1, facet arthropathy and mild disc bulge. No significant spinal canal stenosis. Changes appear to contribute to severe bilateral neuroforaminal stenosis. No prevertebral or paravertebral soft tissue abnormality. IMPRESSION: 1. SEVERE DISC/ENDPLATE DEGENERATIVE CHANGE FROM L2 THROUGH L5 LEVELS WITH MULTILEVEL HYPERTROPHIC FA CET ARTHROPATHY AND SCATTERED LIGAMENTUM FLAVUM THICKENING. 2. PREVIOUS INTERSPINOUS FUSION HARDWARE AT L4-L5. 3. NO MALALIGNMENT, THOUGH, WITH STRAIGHTENING OF THE NORMAL LUMBAR LORDOSIS. 4. SUSPECT A MODERATE SPINAL CANAL STENOSIS AT L4-L5 AND MILD AT L2-L3 AND L3-L4. 5. VARIABLE NEUROFORAMINAL STENOSES OUTLINED ABOVE, SEVERE ON BOTH SIDES AT L4-L5 AND L5-S1. MODER ATE TO SEVERE ON THE RIGHT AT L3-L4.
== END | disposition home or self-care (01) ==
LOC: RADCTMAIN 07:05
PROVIDERS: ATTEND Orthopaedic Surgery
DX: M47.814 Spondylosis without myelopathy or radiculopathy, thoracic region (principal); M43.14 Spondylolisthesis, thoracic region; M48.062 Spinal stenosis, lumbar region with neurogenic claudication; M47.816 Spondylosis without myelopathy or radiculopathy, lumbar region; M99.72 Connective tissue and disc stenosis of intervertebral foramina of thoracic region; Z98.1 Arthrodesis status
CPT/HCPCS: 72128; 72131

== ENCOUNTER 2023-07-31 22:37 | Emergency (ER) | payer MEDICARE ==
--- NOTE | 2023-07-31 23:14 | ED ---
General Adult HPI - General Chief complaint: Altered Mental Status Stated complaint: Dizziness, Weakness Time Seen by Provider: 07/31/23 22:55 Source: patient, EMS Mode of arrival: EMS Limitations: no limitations - History of Present Illness Initial comments: Dictation was produced using [employer] dictation software. please excuse any grammatical, word or spelling errors. Chief Complaint: 72-year-old female presents emergency department for altered mental status History of Present Illness: 72-year-old female presents emergency department for altered mental status. Patient has multiple comorbidities. She is a resident at [facility] due to homelessness. Apparently [facility] staff has been withholding her medications. States that she's been dealing with stiffness in her hands for several days. Has no other complaints.According to nurse who received report from EMS patient was given her nighttime meds which included benzodiazepines. She is found to be slightly altered after administration of those medications. The ROS documented in this emergency department record has been reviewed and confirmed by me. Those systems with pertinent positive or negative responses have been documented in the HPI. All other systems are other negative and/or noncontributory. - Related Data Home Medications Medication Instructions Recorded Confirmed Atenolol 100 mg PO BID 12/28/13 07/07/22 Methylphenidate HCl [Ritalin] 20 mg PO BID@0900,1400 12/28/13 07/07/22 Atorvastatin [Lipitor] 40 mg PO HS 05/09/15 07/07/22 Ferrous Sulfate [Iron (65 MG 325 mg PO DAILY 04/10/21 07/07/22 Elemental)] LORazepam [Ativan] 1 mg PO HS 04/10/21 07/07/22 Meclizine [Antivert] 25 mg PO BID 04/10/21 07/07/22 Nitroglycerin Sl Tabs [Nitrostat] 0.4 mg SL Q5M PRN 04/10/21 07/07/22 Oxybutynin Chloride 5 mg PO BID 04/10/21 07/07/22 busPIRone HCL [Buspar] 7.5 mg PO TID 04/10/21 07/07/22 estradioL [Estrace] 2 mg PO DAILY 04/10/21 07/07/22 tiZANidine [Zanaflex] 4 mg PO DAILY PRN 04/10/21 07/07/22 traZODone HCL 50 mg PO DAILY PRN 04/10/21 07/07/22 Doxycycline Hyclate 100 mg PO BID 04/06/22 07/07/22 Gabapentin [Neurontin] 100 mg PO TID 04/06/22 07/07/22 Levothyroxine Sodium [Synthroid] 88 mcg PO DAILY 04/06/22 07/07/22 Losartan [Cozaar] 50 mg PO DAILY 04/06/22 07/07/22 Spironolactone 50 mg PO TID 04/06/22 07/07/22 cloNIDine HCL [Catapres] 0.1 mg PO TID 04/06/22 07/07/22 oxyCODONE-APAP 7.5-325MG [Percocet 1 tab PO QID PRN 04/06/22 07/07/22 7.5-325 mg] Albuterol Sulfate [Ventolin HFA] 1 - 2 puff INHALATION Q6H PRN 07/07/22 07/07/22 Magnesium Oxide [Mag-Ox] 400 mg PO DAILY 07/07/22 07/07/22 Allergies Allergy/AdvReac Type Severity Reaction Status Date / Time Penicillins Allergy Dyspnea, Verified 10/08/22 13:25 RASH basil AdvReac Dyspnea Verified 10/08/22 13:25 duloxetine [From Cymbalta] AdvReac Unknown Verified 10/08/22 13:25 gabapentin [From Neurontin] AdvReac Hallucinati Verified 10/08/22 13:25 ons RUBBING ALCOHOL AdvReac Unknown Dyspnea IF Uncoded 10/08/22 13:25 SHE INHALES IT. powder in gloves AdvReac Dyspnea Uncoded 10/08/22 13:25 Review of Systems ROS Statement: Those systems with pertinent positive or pertinent negative responses have been documented in the HPI. ROS Other: All systems not noted in ROS Statement are negative. Past Medical History Past Medical History: Asthma, Chest Pain / Angina, COPD, Fibromyalgia, GERD/Reflux, Hyperlipidemia, Hypertension, Liver Disease, Musculoskeletal Disorder, Osteoarthritis (OA), Renal Disease, Seizure Disorder, Sleep Apnea/CPAP/BIPAP, Thyroid Disorder Additional Past Medical History / Comment(s): Heart murmur, leaky valve. Vertigo, Lt ear [place]ASH[place]. Hypothyroid, Fatty liver, "kidney failure 08/2019." Last seizure 2017. O2 @ 3-4 L HS. Chronic back pain, hx injections. Edema BLE. History of Any Multi-Drug Resistant Organisms: None Reported Past Surgical History: Appendectomy, Back Surgery, Breast Surgery, Heart Catheterization, Hysterectomy, Joint Replacement, Orthopedic Surgery Additional Past Surgical History / Comment(s): abd adhesion repair x 3, breast lumpectomies for blood clots 1974 in office, back injections Back surgery x2, Cervical fusion 2017. Lt Total shoulder, bilat Total knees. Past Anesthesia/Blood Transfusion Reactions: No Reported Reaction Additional Past Anesthesia/Blood Transfusion Reaction / Comment(s): STATES SHE I S CLAUSTROPHOBIC Past Psychological History: ADD/ADHD, Anxiety Smoking Status: Former smoker Past Alcohol Use History: Occasional Past Drug Use History: None Reported - Past Family History Father Family Medical History: Cancer, Diabetes Mellitus, Renal Disease Additional Family Medical History / Comment(s): Passed from renal failure in 1995 Mother Family Medical History: Blood Disorder, CVA/TIA, Diabetes Mellitus Additional Family Medical History / Comment(s): Passed from anemia in 1998 Brother(s) Family Medical History: Coronary Artery Disease (CAD), Diabetes Mellitus Additional Family Medical History / Comment(s): post op from triple bypass surgery in 1994 Sister(s) Family Medical History: Cancer Additional Family Medical History / Comment(s): from esophagus cancer in Sep 2013 General Exam - General Exam Comments Initial Comments: PHYSICAL EXAM: General Impression: Alert and oriented x3, not in acute distress HEENT: Normocephalic atraumatic, extra-ocular movements intact, pupils equal and reactive to light bilaterally, mucous membranes moist. Cardiovascular: Heart regular rate and rhythm Chest: Able to complete full sentences, no retractions, no tachypnea Abdomen: abdomen soft, non-tender, non-distended, no organomegaly Musculoskeletal: Pulses present and equal in all extremities, no peripheral edema Motor: no focal deficits noted Neurological: CN II-XII grossly intact, no focal motor or sensory deficits noted Skin: Intact with no visualized rashes Psych: Normal affect and mood Limitations: no limitations Course Vital Signs 07/31/23 07/31/23 08/01/23 22:54 23:59 00:20 Temperature 98.0 F Pulse Rate 69 65 69 Respiratory 16 16 16 Rate Blood Pressure 133/71 151/82 122/67 O2 Sat by Pulse 97 96 99 Oximetry 12/03/23 01:00 Temperature Pulse Rate 65 Respiratory 18 Rate Blood Pressure 110/59 O2 Sat by Pulse 99 Oximetry Medical Decision Making - Medical Decision Making Was pt. sent in by a medical professional or institution (, [facility], [facility] [facility], urgent care, hospital, or care home...) When possible be specific @ -No Did you speak to anyone other than the patient for history (EMS, parent, family, police, friend...)? What history was obtained from this source @ -No Did you review nursing and triage notes (agree or disagree)? Why? @ -I reviewed and agree with nursing and triage notes Were old charts reviewed (outside hosp., previous admission, EMS record, old EKG, old radiological studies, urgent care reports/EKG's, care home records)? Report findings @ -No old charts were reviewed Differential Diagnosis (chest pain, altered mental status, abdominal pain women, abdominal pain men, vaginal bleeding, musculoskeletal, weakness, fever, dyspnea, syncope, headache, dizziness, GI bleed, back pain, seizure, CVA, palpatations, mental health)? @ -FDifferential Altered Mental Status: Hypoglycemia, DKA, hypercapnia, ETOH, overdose, CO poisoning, trauma, myxedema coma, HTN encephalopathy, infection, encephalitis, psychosis, intercranial hemorrhage, hepatic encephalopathy, meningitis, CVA, this is not meant to be an all-inclusive list EKG interpreted by me (3pts min.). @ -None done X-rays interpreted by me (1pt min.). @ -None done CT interpreted by me (1pt min.). @ -None done U/S interpreted by me (1pt. min.). @ -None done What testing was considered but not performed or refused? (CT, X-rays, U/S, labs)? Why? @ -None What meds were considered but not given or refused? Why? @ -None Did you discuss the management of the patient with other professionals (professionals i.e. [facility] Yad[facility], [employer], lab, RT, psych nurse, psychotherapist social worker, bevel mill operator, teacher, flight communications officer, foster care case manager)? Give summary @ -No Was smoking cessation discussed for >3mins.? @ -No Was critical care preformed (if so, how long)? @ -No Were there social determinants of health that impacted care today? How? (Homelessness, low income, unemployed, alcoholism, drug addiction, transportation, low edu. Level, literacy, decrease access to med. care, snf, rehab)? @ -No Was there de-escalation of care discussed even if they declined (Discuss DNR or withdrawal of care, Hospice)? DNR status @ -No What co-morbidities impacted this encounter? (DM, HTN, Smoking, COPD, CAD, Cancer, CVA, ARF, Chemo, Hep., AIDS, mental health diagnosis, sleep apnea, m orbid obesity)? @ -None Was patient admitted / discharged? Hospital course, mention meds given and route, prescriptions, significant lab abnormalities, going to OR and other pertinent info. @ -72 Year-old female presents emergency department for chief complaint of altered mental status. Patient has no complaints. She is well-appearing at the bedside. Patient according to nurse received a report from EMS there concerned that patient had decreased mentation. She is alert and oriented 4 with no neurologic deficits on physical exam. Laboratory evaluation is unremarkable. Patient will be discharge back to [facility] Undiagnosed new problem with uncertain prognosis? @ -No Drug Therapy requiring intensive monitoring for toxicity (Heparin, Nitro, Insulin, Cardizem)? @ -No Were any procedures done? @ -No Diagnosis/symptom? Acute, or Chronic, or Acute on Chronic? Uncomplicated (without systemic symptoms) or Complicated (systemic symptoms)? @ -Altered mental status Side effects of treatment? @ -No Exacerbation, Progression, or Severe Exacerbation? @ -No Poses a threat to life or bodily function? How? (Chest pain, [place], [place], pneumonia, PE, COPD, DKA, ARF, appy, cholecystitis, CVA, Diverticulitis, Homicidal, Suicidal, threat to staff... and all critical care pts) @ -No - Lab Data Result diagrams: 07/31/23 23:24 07/31/23 23:24 Lab Results 07/31/23 07/31/23 08/01/23 Range/Units 23:24 23:24 00:33 WBC 6.2 (3.8-10.6) k/uL RBC 3.88 (3.80-5.40) m/uL Hgb 12.0 (11.4-16.0) gm/dL Hct 36.1 (34.0-46.0) % MCV 93.1 (80.0-100.0) fL MCH 31.0 (25.0-35.0) pg MCHC 33.3 (31.0-37.0) g/dL RDW 13.1 (11.5-15.5) % Plt Count 202 (150-450) k/uL MPV 8.1 Neutrophils % 61 % Lymphocytes % 23 % Monocytes % 7 % Eosinophils % 5 % Basophils % 0 % Neutrophils # 3.8 (1.3-7.7) k/uL Lymphocytes # 1.4 (1.0-4.8) k/uL Monocytes # 0.4 (0-1.0) k/uL Eosinophils # 0.3 (0-0.7) k/uL Basophils # 0.0 (0-0.2) k/uL Sodium 137 (137-145) mmol/L Potassium 3.9 (3.5-5.1) mmol/L Chloride 104 (98-107) mmol/L Carbon Dioxide 25 (22-30) mmol/L Anion Gap 8 mmol/L BUN 19 H (7-17) mg/dL Creatinine 1.01 (0.52-1.04) mg/dL Est GFR (CKD-EPI)AfAm 65 (>60 ml/min/1.73 sqM) Est GFR (CKD-EPI)NonAf 57 (>60 ml/min/1.73 sqM) Glucose 128 H (74-99) mg/dL Calcium 8.4 (8.4-10.2) mg/dL Urine Opiates Screen Not Detected (NotDetected) Ur Oxycodone Screen Detected H (NotDetected) Urine Methadone Screen Not Detected (NotDetected) Ur Propoxyphene Screen Not Detected (NotDetected) Ur Barbiturates Screen Not Detected (NotDetected) U Tricyclic Antidepress Not Detected (NotDetected) Ur Phencyclidine Scrn Not Detected (NotDetected) Ur Amphetamines Screen Not Detected (NotDetected) U Methamphetamines Scrn Not Detected (NotDetected) U Benzodiazepines Scrn Detected H (NotDetected) Urine Cocaine Screen Not Detected (NotDetected) U Marijuana (THC) Screen Not Detected (NotDetected) Serum Alcohol <10 mg/dL Disposition Clinical Impression: Altered mental status Disposition: HOME SELF-CARE Condition: Good Instructions (If sedation given, give patient instructions): Altered Mental Status (ED) Is patient prescribed a controlled substance at d/c from ED?: No Referrals: Panfilo Riggs MD [Primary Care Provider] - 1-2 days Time of Disposition: 02:49
[2023-07-31 23:39] LABS: Basophils % (A) 0 %; Eosinophils # (A) 0.3 k/uL (0-0.7); Eosinophils % (A) 5 %; HCT 36.1 % (34.0-46.0); Lymphocytes # (A) 1.4 k/uL (1.0-4.8); Lymphocytes % (A) 23 %; MCHC 33.3 g/dL (31.0-37.0); MCV 93.1 fL (80.0-100.0); Mean Platelet Volume 8.1; Monocytes # (A) 0.4 k/uL (0-1.0); Monocytes % (A) 7 %; Neutrophils # (A) 3.8 k/uL (1.3-7.7); Neutrophils % (A) 61 %; Platelet Count 202 k/uL (150-450); RBC 3.88 m/uL (3.80-5.40); RDW 13.1 % (11.5-15.5); WBC 6.2 k/uL (3.8-10.6)
[2023-07-31 23:55] LABS: African American GFR (CKD) 65 (>60 ml/min/1.73 sqM); Alcohol <10 mg/dL; Anion Gap 8 mmol/L; Blood Urea Nitrogen 19 mg/dL (7-17); Calcium 8.4 mg/dL (8.4-10.2); Carbon Dioxide 25 mmol/L (22-30); Chloride 104 mmol/L (98-107); Glucose 128 mg/dL (74-99); Non-African American GFR(CKD) 57 (>60 ml/min/1.73 sqM); Potassium 3.9 mmol/L (3.5-5.1); Sodium 137 mmol/L (137-145)
[2023-08-01 01:07] LABS: Amphetamine Screen,Urine Not Detected (NotDetected); Barbiturate Screen,Urine Not Detected (NotDetected); Benzodiazepines Screen,Urine Detected (NotDetected); Cocaine Screen,Urine Not Detected (NotDetected); Methadone Screen, Urine Not Detected (NotDetected); Opiate Screen,Urine Not Detected (NotDetected); Oxycodone Screen, Urine Detected (NotDetected); Phencyclidine Screen,Urine Not Detected (NotDetected); Tricyclic Antidepressant,Urine Not Detected (NotDetected); Urn Cannabinoid Scrn Not Detected (NotDetected)
[2023-08-01 02:18] VITALS: RESP 18
[2023-08-01 04:16] VITALS: BP 162/76; PULSE 82; TEMP 98.4
== END 2023-08-01 04:08 | disposition home or self-care (01) ==
LOC: EC 22:37
DX: R41.82 Altered mental status, unspecified (principal); E03.9 Hypothyroidism, unspecified; E78.5 Hyperlipidemia, unspecified; F41.9 Anxiety disorder, unspecified; G47.30 Sleep apnea, unspecified; I10 Essential (primary) hypertension; J44.89 Other specified chronic obstructive pulmonary disease; M19.90 Unspecified osteoarthritis, unspecified site; Z79.890 Hormone replacement therapy; Z79.899 Other long term (current) drug therapy; Z87.891 Personal history of nicotine dependence; Z88.0 Allergy status to penicillin; Z88.8 Allergy status to other drugs, medicaments and biological substances
CPT/HCPCS: 36415; 80048; 80306; 80320; 85025; 93005; 99285

== ENCOUNTER 2024-08-10 20:30 | Observation (INO) | payer MEDICARE ==
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
[2024-08-10 22:00] LABS: Basophils % (A) 0 %; Eosinophils # (A) 0.3 k/uL (0-0.7); Eosinophils % (A) 3 %; HCT 42.6 % (34.0-46.0); HGB 13.9 gm/dL (11.4-16.0); Lymphocytes % (A) 18 %; MCHC 32.5 g/dL (31.0-37.0); MCV 95.2 fL (80.0-100.0); Mean Platelet Volume 7.8; Monocytes # (A) 0.7 k/uL (0-1.0); Monocytes % (A) 6 %; Neutrophils # (A) 7.7 k/uL (1.3-7.7); Neutrophils % (A) 70 %; Platelet Count 269 k/uL (150-450); RBC 4.48 m/uL (3.80-5.40)
[2024-08-10 22:06] LABS: Appearance,Urine Clear (Clear); Bilirubin,Urine Negative (Negative); Blood,Urine Negative (Negative); Color,Urine Colorless; Glucose,Urine (UA) Trace (Negative); Ketones,Urine Negative (Negative); Leukocyte Esterase,Urine Negative (Negative); Nitrite,Urine Negative (Negative); PH, Urine 6.5 (5.0-8.0); Protein,Urine Trace (Negative); Specific Gravity,Urine 1.014 (1.001-1.035); Urobilinogen,Urine <2.0 mg/dL (<2.0)
[2024-08-10 22:16] LABS: Acetaminophen <10.0 ug/mL; Alcohol <10 mg/dL; Salicylate <1.0 mg/dL
[2024-08-10 22:18] LABS: Amphetamine Screen,Urine Not Detected (NotDetected); Barbiturate Screen,Urine Not Detected (NotDetected); Benzodiazepines Screen,Urine Detected (NotDetected); Cocaine Screen,Urine Not Detected (NotDetected); Methadone Screen, Urine Not Detected (NotDetected); Opiate Screen,Urine Not Detected (NotDetected); Oxycodone Screen, Urine Not Detected (NotDetected); Phencyclidine Screen,Urine Not Detected (NotDetected); Tricyclic Antidepressant,Urine Not Detected (NotDetected); Urn Cannabinoid Scrn Not Detected (NotDetected)
[2024-08-10 23:22] LABS: ALT 28 U/L (4-34); AST 33 U/L (14-36); African American GFR (CKD) >90 (>60 ml/min/1.73 sqM); Albumin 4.7 g/dL (3.5-5.0); Alkaline Phosphatase 81 U/L (38-126); Anion Gap 8 mmol/L; Blood Urea Nitrogen 20 mg/dL (7-17); Calcium 9.5 mg/dL (8.4-10.2); Carbon Dioxide 24 mmol/L (22-30); Chloride 107 mmol/L (98-107); Glucose 115 mg/dL (74-99); Non-African American GFR(CKD) 81 (>60 ml/min/1.73 sqM); Potassium 4.1 mmol/L (3.5-5.1); Sodium 139 mmol/L (137-145); Total Bilirubin 0.3 mg/dL (0.2-1.3); Total Protein 7.3 g/dL (6.3-8.2)
[2024-08-11] MEDS: atenoloL 50 MG TAB PO SCH (02:10)
[2024-08-11] MEDS: cloNIDine HCL 0.1 MG TAB PO SCH (02:11)
[2024-08-11] MEDS: SPIRONOLACTONE 25 MG TAB PO SCH (02:23)
[2024-08-11] MEDS: LEVOTHYROXINE 88 MCG TAB PO SCH (06:01)
[2024-08-11] MEDS: cloNIDine HCL 0.1 MG TAB PO PRN (06:01)
[2024-08-11] MEDS: HYDROcodone/APAP 10-325MG 1 EACH TAB PO ONE (06:01)
[2024-08-11] MEDS: LOSARTAN 50 MG TAB PO SCH (08:49)
[2024-08-11] MEDS: ATORVASTATIN 40 MG TAB PO SCH (20:28)
[2024-08-11] MEDS: oxyCODONE-APAP 10-325MG 1 EACH TAB PO PRN (20:29)
[2024-08-11] MEDS: amLODIPine 5 MG TAB PO SCH (20:31)
[2024-08-11] MEDS: oxyBUTYnin chloride 5 MG TAB PO STA (21:03)
[2024-08-11] MEDS: QUEtiapine 100 MG TAB PO SCH (21:49)
[2024-08-12] MEDS ORDERED: amLODIPine 10 MG TAB PO SCH (21:00)
[2024-08-12] MEDS: oxyBUTYnin chloride 5 MG TAB PO ONE (21:08)
[2024-08-13] MEDS: METOPROLOL SUCCINATE (ER) 100 MG TAB.ER.24H PO SCH (09:54)
[2024-08-13] MEDS: LOSARTAN 50 MG TAB PO SCH (09:55)
[2024-08-13] MEDS: amLODIPine 5 MG TAB PO SCH (21:24)
[2024-08-14] MEDS: cloNIDine HCL 0.1 MG TAB PO STA (13:31)
--- NOTE | 2024-08-14 20:59 | ED ---
Medical Decision Making - Medical Decision Making Patient complaining of chest discomfort over the past 10 minutes. Patient's feels like pressure and is somewhat severe. Patient states she gets this at least once a month and nitro helps resolve it. Patient states there is some radiation towards the back. No dyspnea. No nausea. No diaphoresis. Patient requests her nitroglycerin. EKG interpreted by myself shows sinus rhythm with a rate of 77. [place] 154. QRS 85. QT 388. QTc 420. Normal axis. Normal QRS. T wave inversion in lead V6. Patient resting comfortably in bed. Heart: Regular rate and rhythm without murmur. Pulses 2/4 bilateral radial and dorsalis pedis. Lungs are clear to auscultation No calf pain or tenderness. Additional evaluation ordered including blood work and chest x-ray. Dr. Mejia to follow-up. - Lab Data Result diagrams: 08/10/24 21:51 08/10/24 22:19 Lab Results 08/10/24 08/10/24 08/10/24 Range/Units 21:51 21:51 21:51 WBC 11.0 H (3.8-10.6) k/uL RBC 4.48 (3.80-5.40) m/uL Hgb 13.9 (11.4-16.0) gm/dL Hct 42.6 (34.0-46.0) % MCV 95.2 (80.0-100.0) fL MCH 31.0 (25.0-35.0) pg MCHC 32.5 (31.0-37.0) g/dL RDW 12.0 (11.5-15.5) % Plt Count 269 (150-450) k/uL MPV 7.8 Neutrophils % 70 % Lymphocytes % 18 % Monocytes % 6 % Eosinophils % 3 % Basophils % 0 % Neutrophils # 7.7 (1.3-7.7) k/uL Lymphocytes # 2.0 (1.0-4.8) k/uL Monocytes # 0.7 (0-1.0) k/uL Eosinophils # 0.3 (0-0.7) k/uL Basophils # 0.0 (0-0.2) k/uL Sodium (137-145) mmol/L Potassium (3.5-5.1) mmol/L Chloride (98-107) mmol/L Carbon Dioxide (22-30) mmol/L Anion Gap mmol/L BUN (7-17) mg/dL Creatinine (0.52-1.04) mg/dL Est GFR (CKD-EPI)AfAm (>60 ml/min/1.73 sqM) Est GFR (CKD-EPI)NonAf (>60 ml/min/1.73 sqM) Glucose (74-99) mg/dL Calcium (8.4-10.2) mg/dL Total Bilirubin (0.2-1.3) mg/dL AST (14-36) U/L ALT (4-34) U/L Alkaline Phosphatase (38-126) U/L Total Protein (6.3-8.2) g/dL Albumin (3.5-5.0) g/dL TSH 1.380 (0.465-4.680) mIU/L Urine Color Colorless Urine Appearance Clear (Clear) Urine pH 6.5 (5.0-8.0) Ur Specific [place] 1.014 (1.001-1.035) Urine Protein Trace H (Negative) Urine Glucose (UA) Trace H (Negative) Urine Ketones Negative (Negative) Urine Blood Negative (Negative) Urine Nitrite Negative (Negative) Urine Bilirubin Negative (Negative) Urine Urobilinogen <2.0 (<2.0) mg/dL Ur Leukocyte Esterase Negative (Negative) Salicylates <1.0 mg/dL Urine Opiates Screen Not Detected (NotDetected) Ur Oxycodone Screen Not Detected (NotDetected) Urine Methadone Screen Not Detected (NotDetected) Acetaminophen <10.0 ug/mL Ur Barbiturates Screen Not Detected (NotDetected) U Tricyclic Antidepress Not Detected (NotDetected) Ur Phencyclidine Scrn Not Detected (NotDetected) Ur Amphetamines Screen Not Detected (NotDetected) U Methamphetamines Scrn Not Detected (NotDetected) U Benzodiazepines Scrn Detected H (NotDetected) Urine Cocaine Screen Not Detected (NotDetected) U Marijuana (THC) Screen Not Detected (NotDetected) Serum Alcohol <10 mg/dL SARS-CoV-2 (PCR) (Not Detectd) 08/10/24 08/11/24 Range/Units 22:19 01:54 WBC (3.8-10.6) k/uL RBC (3.80-5.40) m/uL Hgb (11.4-16.0) gm/dL Hct (34.0-46.0) % MCV (80.0-100.0) fL MCH (25.0-35.0) pg MCHC (31.0-37.0) g/dL RDW (11.5-15.5) % Plt Count (150-450) k/uL MPV Neutrophils % % Lymphocytes % % Monocytes % % Eosinophils % % Basophils % % Neutrophils # (1.3-7.7) k/uL Lymphocytes # (1.0-4.8) k/uL Monocytes # (0-1.0) k/uL Eosinophils # (0-0.7) k/uL Basophils # (0-0.2) k/uL Sodium 139 (137-145) mmol/L Potassium 4.1 (3.5-5.1) mmol/L Chloride 107 (98-107) mmol/L Carbon Dioxide 24 (22-30) mmol/L Anion Gap 8 mmol/L BUN 20 H (7-17) mg/dL Creatinine 0.75 (0.52-1.04) mg/dL Est GFR (CKD-EPI)AfAm >90 (>60 ml/min/1.73 sqM) Est GFR (CKD-EPI)NonAf 81 (>60 ml/min/1.73 sqM) Glucose 115 H (74-99) mg/dL Calcium 9.5 (8.4-10.2) mg/dL Total Bilirubin 0.3 (0.2-1.3) mg/dL AST 33 (14-36) U/L ALT 28 (4-34) U/L Alkaline Phosphatase 81 (38-126) U/L Total Protein 7.3 (6.3-8.2) g/dL Albumin 4.7 (3.5-5.0) g/dL TSH (0.465-4.680) mIU/L Urine Color Urine Appearance (Clear) Urine pH (5.0-8.0) Ur Specific [place] (1.001-1.035) Urine Protein (Negative) Urine Glucose (UA) (Negative) Urine Ketones (Negative) Urine Blood (Negative) Urine Nitrite (Negative) Urine Bilirubin (Negative) Urine Urobilinogen (<2.0) mg/dL Ur Leukocyte Esterase (Negative) Salicylates mg/dL Urine Opiates Screen (NotDetected) Ur Oxycodone Screen (NotDetected) Urine Methadone Screen (NotDetected) Acetaminophen ug/mL Ur Barbiturates Screen (NotDetected) U Tricyclic Antidepress (NotDetected) Ur Phencyclidine Scrn (NotDetected) Ur Amphetamines Screen (NotDetected) U Methamphetamines Scrn (NotDetected) U Benzodiazepines Scrn (NotDetected) Urine Cocaine Screen (NotDetected) U Marijuana (THC) Screen (NotDetected) Serum Alcohol mg/dL SARS-CoV-2 (PCR) Not Detected (Not Detectd) Disposition Clinical Impression: Acute psychosis Disposition: TRANSFER TO PSYCH HOSP/UNIT Is patient prescribed a controlled substance at d/c from ED?: No Referrals: Panfilo Riggs MD [Primary Care Provider] - 1-2 days
[2024-08-14] MEDS: NITROGLYCERIN SL TABS 0.4 MG TAB SUBLINGUAL STA ×3 (21:06→21:34)
[2024-08-14] MEDS: ASPIRIN 81 MG PO STA (21:06)
[2024-08-14 21:47] LABS: Basophils % (A) 0 %; Eosinophils # (A) 0.2 k/uL (0-0.7); Eosinophils % (A) 2 %; Lymphocytes # (A) 2.3 k/uL (1.0-4.8); Lymphocytes % (A) 20 %; MCH 32.1 pg (25.0-35.0); MCHC 34.3 g/dL (31.0-37.0); MCV 93.5 fL (80.0-100.0); Mean Platelet Volume 7.1; Monocytes # (A) 0.7 k/uL (0-1.0); Monocytes % (A) 6 %; Neutrophils % (A) 70 %; Platelet Count 326 k/uL (150-450); RBC 5.34 m/uL (3.80-5.40); RDW 11.9 % (11.5-15.5); WBC 11.4 k/uL (3.8-10.6)
[2024-08-14 21:57] LABS: HGB 17.2 gm/dL (11.4-16.0)
[2024-08-14 22:03] LABS: ALT 34 U/L (4-34); AST 40 U/L (14-36); African American GFR (CKD) 70 (>60 ml/min/1.73 sqM); Albumin 4.9 g/dL (3.5-5.0); Alkaline Phosphatase 71 U/L (38-126); Anion Gap 12 mmol/L; Blood Urea Nitrogen 23 mg/dL (7-17); Calcium 10.1 mg/dL (8.4-10.2); Carbon Dioxide 24 mmol/L (22-30); Chloride 103 mmol/L (98-107); Glucose 144 mg/dL (74-99); Magnesium 1.8 mg/dL (1.6-2.3); Non-African American GFR(CKD) 61 (>60 ml/min/1.73 sqM); Potassium 4.9 mmol/L (3.5-5.1); Sodium 139 mmol/L (137-145); Total Bilirubin 0.9 mg/dL (0.2-1.3); Total Protein 7.9 g/dL (6.3-8.2)
--- NOTE | 2024-08-14 22:05 | XR ---
EXAMINATION TYPE: XR chest 2V DATE OF EXAM: 08/14/2024 9:44 PM CLINICAL INDICATION:Female, 73 years old with history of Chest Pain; [facility] COMPARISON: Chest radiograph 10/08/2022 TECHNIQUE: XR chest 2V Frontal view of the chest. FINDINGS: Lungs/Pleura: Low lung volumes are present. There is no evidence of pleural effusion, focal consolida tion, or pneumothorax. Right lung atelectasis. Pulmonary vascularity: Unremarkable. Heart/mediastinum: Cardiomediastinal silhouette is unremarkable. Musculoskeletal: No acute osseous pathology. Left shoulder arthroplasty hardware partially visualized . Other findings: None IMPRESSION: Right lower lung atelectasis with no acute cardiopulmonary disease/process. [facility], , 08/14/2024 10:03 PM
[2024-08-14 22:08] LABS: Partial Thromboplastin Time 22.4 sec (22.0-30.0); Prothrombin Time 11.2 sec (10.0-12.5)
[2024-08-14] MEDS ORDERED: CALCIUM CARBONATE 500 MG CHEWABLE PO PRN (23:04)
[2024-08-14] MEDS ORDERED: ACETAMINOPHEN TAB 325 MG TAB PO PRN (23:04)
[2024-08-14] MEDS ORDERED: NALOXONE 0.4 MG/ML 1 ML VIAL IV PRN (23:04)
[2024-08-14] MEDS ORDERED: MAG HYDROX/AL HYDROX/SIMETH 30 ML CUP PO PRN (23:04)
[2024-08-14] MEDS ORDERED: ALPRAZolam 0.25 MG TAB PO PRN (23:04)
[2024-08-15] MEDS: NITROGLYCERIN SL TABS 0.4 MG TAB SUBLINGUAL STA (08:24)
[2024-08-15] MEDS: FAMOTIDINE 20 MG TAB PO SCH (08:24)
[2024-08-15] MEDS: FUROSEMIDE 20 MG TAB PO SCH (08:25)
[2024-08-15] MEDS: oxyBUTYnin chloride 5 MG TAB PO SCH (08:25)
[2024-08-15] MEDS: FERROUS SULFATE 325 MG TAB PO SCH (08:27)
[2024-08-15] MEDS: ENOXAPARIN 40 MG/0.4 ML SYRINGE SQ SCH (08:27)
[2024-08-15] MEDS: cloNIDine HCL 0.2 MG TAB PO SCH (08:29)
[2024-08-15] MEDS ORDERED: NON FORMULARY DRUG (Losartan Potassium [Cozaar] 100 MG Tablet) PO SCH (09:00)
[2024-08-15] MEDS ORDERED: FAMOTIDINE 20 MG TAB PO SCH (09:00)
--- NOTE | 2024-08-15 10:37 | P.CRDCN ---
History of Present Illness History of present illness: HISTORY OF PRESENT ILLNESS: This is a 73-year-old female with a past medical history significant for hypertension and hyperlipidemia. Patient used to follow in the office with Dr. Ontiveros but has not been seen since 2014. We have been asked to see the patient in consultation for chest pain and hypertension. Patient examined at the bedside in the emergency room. The patient was brought to the ER by law enforcement due to a legal pickup order due to declining mental health. The patient has apparently been followed closely outpatient by adult protective services. Patient states that people have been stealing her medications. She is currently awaiting psychiatry evaluation. At the time of examination, the patient denies any chest pain or pressure. She denies any shortness of breath. She does appear slightly agitated at the time of examination when talking about her personal situation. Blood pressures are elevated with a systolic between [id number]. DIAGNOSTICS: - EKG reveals sinus mechanism with nonspecific ST-T wave changes - Chest xray right lower lung atelectasis with no acute process noted - Laboratory data: WBC 11.4. Hemoglobin 17.2. Platelet count 326. D-dimer 0.36. Sodium 139. Potassium 4.9. BUN 23. Creatinine 0.95. Magnesium 1.8. Troponin negative x 3. - Current home cardiac medications include Catapres 0.1 mg 3 times daily, Lipitor 40 mg at night, metoprolol succinate 100 mg daily, Lasix 20 mg daily, losartan 100 mg daily, amlodipine 5 mg twice a day - No previous echocardiogram, stress test, or cardiac catheterization available in EMR for review REVIEW OF SYSTEMS: At the time of my exam: CONSTITUTIONAL: Denies fever or chills. HEENT: Denies blurred vision, vision changes, or eye pain. Denies hemoptysis CARDIOVASCULAR: Denies chest pain. Denies orthopnea. Denies PND. Denies palpitations RESPIRATORY: Denies shortness of breath. GASTROINTESTINAL: Denies abdominal pain. Denies nausea or vomiting. HEMATOLOGIC: Denies bleeding disorders. GENITOURINARY: Denies any blood in urine. SKIN: Denies pruitis. Denies rash. PHYSICAL EXAM: VITAL SIGNS: Reviewed. GENERAL: Well-developed in no acute distress. HEENT: Head is normocephalic. Pupils are equal, round. Sclerae anicteric. Mucous membranes of the mouth are moist. Neck supple. No JVD or thyromegaly LUNGS: Respirations even and unlabored. Lungs essentially clear to auscultation bilaterally. HEART: Regular rate and rhythm. S1 and S2 heard. ABDOMEN: Soft. Nondistended. Nontender. EXTREMITIES: Normal range of motion. No clubbing or cyanosis. Peripheral pulses intact. No lower extremity edema NEUROLOGIC: Awake and alert. ASSESSMENT: Altered mental status with paranoia, awaiting psych evaluation Hypertension Hyperlipidemia PLAN: An acute coronary event has been ruled out Obtain 2D echo to assess cardiac structure and function Resume home cardiac medications Increase clonidine to 0.2 mg 3 times a day Continue to monitor blood pressure Patient is currently stable from a cardiac standpoint Further recommendations pending patient course Nurse practitioner note has been reviewed by physician. Signing provider agrees with the documented findings, assessment, and plan of care documented by LINOTYPE MECHANIC as a scribe. Past Medical History Past Medical History: Asthma, Chest Pain / Angina, COPD, Fibromyalgia, GERD/Reflux, Hyperlipidemia, Hypertension, Liver Disease, Musculoskeletal Disorder, Osteoarthritis (OA), Renal Disease, Seizure Disorder, Sleep Apnea/CPAP/BIPAP, Thyroid Disorder Additional Past Medical History / Comment(s): Heart murmur, leaky valve. Vertigo, Lt ear [place]. Hypothyroid, Fatty liver, "kidney failure 08/2019." Last seizure 2016. O2 @ 3-4 L HS. Chronic back pain, hx injections. Edema BLE. History of Any Multi-Drug Resistant Organisms: None Reported Past Surgical History: Appendectomy, Back Surgery, Breast Surgery, Heart Catheterization, Hysterectomy, Joint Replacement, Orthopedic Surgery Additional Past Surgical History / Comment(s): abd adhesion repair x 3, breast lumpectomies for blood clots 1974 in office, back injections Back surgery x2, Cervical fusion 2017. Lt Total shoulder, bilat Total knees. Past Anesthesia/Blood Transfusion Reactions: No Reported Reaction Additional Past Anesthesia/Blood Transfusion Reaction / Comment(s): STATES SHE IS CLAUSTROPHOBIC Past Psychological History: ADD/ADHD, Anxiety Smoking Status: Former smoker Past Alcohol Use History: Occasional Past Drug Use History: None Reported - Past Family History Father Family Medical History: Cancer, Diabetes Mellitus, Renal Disease Additional Family Medical History / Comment(s): Passed from renal failure in 1995 Mother Family Medical History: Blood Disorder, CVA/TIA, Diabetes Mellitus Additional Family Medical History / Comment(s): Passed from anemia in 1998 Brother(s) Family Medical History: Coronary Artery Disease (CAD), Diabetes Mellitus Additional Family Medical History / Comment(s): post op from triple bypass surgery in 1994 Sister(s) Family Medical History: Cancer Additional Family Medical History / Comment(s): from esophagus cancer in Sep 2013 Medications and Allergies Home Medications Medication Instructions Recorded Confirmed Type Methylphenidate HCl [Ritalin] 20 mg PO BID@0900,1400 12/28/13 08/11/24 History Ferrous Sulfate [Iron (65 MG 325 mg PO DAILY 04/10/21 08/11/24 History Elemental)] Meclizine [Antivert] 25 mg PO BID 04/10/21 08/11/24 History Oxybutynin Chloride 5 mg PO BID 04/10/21 08/11/24 History tiZANidine [Zanaflex] 4 mg PO BID 04/10/21 08/11/24 History Levothyroxine Sodium [Synthroid] 88 mcg PO DAILY 04/06/22 08/11/24 History cloNIDine HCL [Catapres] 0.1 mg PO TID 04/06/22 08/11/24 History Atorvastatin Calcium [Lipitor] 40 mg PO HS 08/11/24 08/11/24 History Ergocalciferol [Vitamin D2 (1250 1,250 mcg PO WEEKLY 08/11/24 08/11/24 History Mcg = 20931 Iu)] Famotidine [Pepcid] 40 mg PO DAILY 08/11/24 08/11/24 History Furosemide [Lasix] 20 mg PO DAILY 08/11/24 08/11/24 History Losartan Potassium [Cozaar] 100 mg PO DAILY 08/11/24 08/11/24 History Metoprolol Succinate [Toprol XL] 100 mg PO DAILY 08/11/24 08/11/24 History QUEtiapine [SEROquel] 100 mg PO HS 08/11/24 08/11/24 History amLODIPine [Norvasc] 5 mg PO BID 08/11/24 08/11/24 History oxyCODONE HCL/ACETAMINOPHEN 1 tab PO Q6HR 08/11/24 08/11/24 History [Percocet 10-325 mg] Allergies Allergy/AdvReac Type Severity Reaction Status Date / Time Penicillins Allergy Dyspnea, Verified 08/11/24 11:40 RASH basil AdvReac Dyspnea Verified 08/11/24 11:40 duloxetine [From Cymbalta] AdvReac Unknown Verified 08/11/24 11:40 gabapentin [From Neurontin] AdvReac Hallucinati Verified 08/11/24 11:40 ons RUBBING ALCOHOL AdvReac Unknown Dyspnea IF Uncoded 08/11/24 11:40 SHE INHALES IT. powder in gloves AdvReac Dyspnea Uncoded 08/11/24 11:40 Physical Exam Vitals: Vital Signs Pulse Resp BP Pulse Ox 08/15/24 05:45 71 18 176/94 98 08/14/24 23:00 65 18 177/91 99 08/14/24 17:17 76 16 167/86 99 08/14/24 15:49 70 16 153/114 95 08/14/24 14:31 121/90 08/14/24 13:02 61 18 192/111 96 08/14/24 10:49 183/92 Results 08/14/24 21:26 08/14/24 21:26 Cardiac Enzymes 08/14/24 08/14/24 08/14/24 Range/Units 21:26 21:26 23:56 AST 40 H (14-36) U/L Troponin I <0.012 <0.012 (0.000-0.034) ng/mL 08/15/24 Range/Units 02:51 AST (14-36) U/L Troponin I <0.012 (0.000-0.034) ng/mL Coagulation 08/14/24 Range/Units 21:26 PT 11.2 (10.0-12.5) sec APTT 22.4 (22.0-30.0) sec CBC 08/14/24 Range/Units 21:26 WBC 11.4 H (3.8-10.6) k/uL RBC 5.34 (3.80-5.40) m/uL Hgb 17.2 H D (11.4-16.0) gm/dL Hct 50.0 H (34.0-46.0) % Plt Count 326 (150-450) k/uL Comprehensive Metabolic Panel 08/14/24 Range/Units 21:26 Sodium 139 (137-145) mmol/L Potassium 4.9 (3.5-5.1) mmol/L Chloride 103 (98-107) mmol/L Carbon Dioxide 24 (22-30) mmol/L BUN 23 H (7-17) mg/dL Creatinine 0.95 (0.52-1.04) mg/dL Glucose 144 H (74-99) mg/dL Calcium 10.1 (8.4-10.2) mg/dL AST 40 H (14-36) U/L ALT 34 (4-34) U/L Alkaline Phosphatase 71 (38-126) U/L Total Protein 7.9 (6.3-8.2) g/dL Albumin 4.9 (3.5-5.0) g/dL Current Medications Generic Name Dose Route Start Last Admin Trade Name Freq PRN Reason Stop Dose Admin Acetaminophen 650 mg 08/14/24 23:04 Acetaminophen Tab 325 Mg Tab PO Q6HR PRN Mild Pain or Fever > 100.5 Al Hydroxide/Mg Hydroxide 15 ml 08/14/24 23:04 Mag Hydrox/Al Hydrox/Simeth 30 Ml Cup PO Q6HR PRN Indigestion Alprazolam 0.25 mg 08/14/24 23:04 Alprazolam 0.25 Mg Tab PO Q6HR PRN Anxiety Amlodipine Besylate 5 mg 08/13/24 21:00 08/15/24 08:25 Amlodipine 5 Mg Tab PO 5 mg BID ANTHONY Administration Atorvastatin Calcium 40 mg 08/11/24 21:00 08/14/24 21:07 Atorvastatin 40 Mg Tab PO 40 mg HS ANTHONY Administration Calcium Carbonate/Glycine 1,000 mg 08/14/24 23:04 Calcium Carbonate 500 Mg Chewable PO Q4HR PRN Dyspepsia Clonidine 0.1 mg 08/11/24 05:55 08/15/24 08:24 Clonidine Hcl 0.1 Mg Tab PO 0.1 mg BID PRN Administration Blood Pressure - High Clonidine 0.2 mg 08/15/24 09:00 08/15/24 08:29 Clonidine Hcl 0.2 Mg Tab PO 0.2 mg TID ANTHONY Administration Enoxaparin Sodium 40 mg 08/15/24 09:00 08/15/24 08:27 Enoxaparin 40 Mg/0.4 Ml Syringe SQ 40 mg DAILY ANTHONY Administration Ergocalciferol 1,250 mcg 08/21/24 09:00 Ergocalciferol 1,250 Mcg (50,000 Iu) Capsule PO WEEKLY [facility] Famotidine 40 mg 08/15/24 09:00 08/15/24 08:24 Famotidine 20 Mg Tab PO 40 mg DAILY ANTHONY Administration Ferrous Sulfate 325 mg 08/15/24 09:00 08/15/24 08:27 Ferrous Sulfate 325 Mg Tab PO 325 mg DAILY ANTHONY Administration Furosemide 20 mg 08/15/24 09:00 08/15/24 08:25 Furosemide 20 Mg Tab PO 20 mg DAILY ANTHONY Administration Levothyroxine Sodium 88 mcg 08/11/24 06:00 08/15/24 05:46 Levothyroxine 88 Mcg Tab PO 88 mcg DAILY@0600 ANTHONY Administration Losartan Potassium 100 mg 08/13/24 09:00 08/15/24 08:25 Losartan 50 Mg Tab PO 100 mg DAILY ANTHONY Administration Metoprolol Succinate 100 mg 08/13/24 09:00 08/15/24 08:27 Metoprolol Succinate (Er) 100 Mg Tab.Er.24h PO 100 mg DAILY ANTHONY Administration Naloxone HCl 0.2 mg 08/14/24 23:04 Naloxone 0.4 Mg/Ml 1 Ml Vial IV Q2M PRN Opioid Reversal Oxybutynin Chloride 5 mg 08/15/24 09:00 08/15/24 08:25 Oxybutynin Chloride 5 Mg Tab PO 5 mg BID ANTHONY Administration Oxycodone/Acetaminophen 1 each 08/11/24 20:12 08/15/24 05:46 Oxycodone-Apap 10-325mg 1 Each Tab PO 1 each Q6HR PRN Administration Pain Quetiapine Fumarate 100 mg 08/11/24 21:00 08/14/24 21:06 Quetiapine 100 Mg Tab PO 100 mg HS ANTHONY Administration Spironolactone 50 mg 08/11/24 01:45 08/15/24 08:24 Spironolactone 25 Mg Tab PO 50 mg TID ANTHONY Administration 08/14/24 21:26 08/14/24 21:26
[2024-08-15] MEDS ORDERED: HALOPERIDOL LACTATE 5 MG/ML 1 ML VIAL IM PRN (13:27)
[2024-08-15] MEDS ORDERED: QUEtiapine 25 MG TAB PO PRN (13:27)
--- NOTE | 2024-08-15 13:34 | P.CN ---
Psychiatric Consult - . Consult date: 08/15/24 Consult:: 08/15/24 13:04 IDENTIFYING DATA: This patient is a 73-year-old female, is single, she currently lives in an apartment, she has 2 kids. REASON FOR REFERRAL: Psychiatry was consulted for "psychiatric evaluation" HISTORY OF PRESENT ILLNESS: The patient presented to the hospital initially on 08/10 brought in by the ER by police in custody. Apparently patient has been having declining mental health for the past year, having housing issues, earlier living out of her car. Apparently patient was believing that people were breaking in and stealing her belongings from her car and also her house, acting paranoid. Patient's UDS was positive for benzodiazepines. Blood alcohol level was negative. Patient reportedly was seen by EPS and deemed appropriate for inpatient geriatric psych transfer however patient had problems with her blood pressure which are currently being treated by medicine. Webbing Weaver saw patient today at the bedside, she was laying down agreeable to speak to blog writer. She was fairly argumentative, irritable, rapid speech. Spoke about people breaking into her house and stealing her medications and also other belongings. States that she does not trust to blog writer and does not believe she needs a psychiatrist. She does not know why she is in the hospital. Has very poor insight and judgment. She is denying any depression at this time and states that she feels "great". She believes that a nurse yesterday was the same nurse that used to work at a fpc that might be after her. She is not trusting anybody at this time, refused to speak about medications, believes she does not need them. She was fairly illogical at times during conversation. Reporting poor sleep, appetite is fair. Denying any suicidal or homicidal ideations intent or plan. Patient denies any auditory, visual hallucinations. Patients admits to using no recreational drugs or cigarettes PAST PSYCHIATRIC HISTORY: Patient claims that she has no previous psychiatric diagnosis. Patient denies being on any psychiatric medications. Patient denies any previous psychiatric hospitalizations. She states that she used to follow- up with Dr. Yan as her psychiatrist and was previously on trazodone and Cymbalta however was "taken off them". Patient denies any history of suicide attempts in the past. Past Medical History: Asthma, Chest Pain / Angina, COPD, Fibromyalgia, GERD/Reflux, Hyperlipidemia, Hypertension, Liver Disease, Musculoskeletal Disorder, Osteoarthritis (OA), Renal Disease, Seizure Disorder, Sleep Apnea/CPAP/BIPAP, Thyroid Disorder Additional Past Medical History / Comment(s): Heart murmur, leaky valve. Vertigo, Lt ear [place]. Hypothyroid, Fatty liver, "kidney failure 08/2019." Last seizure 2017. O2 @ 3-4 L HS. Chronic back pain, hx injections. Edema BLE. History of Any Multi-Drug Resistant Organisms: None Reported Past Surgical History: Appendectomy, Back Surgery, Breast Surgery, Heart Cath eterization, Hysterectomy, Joint Replacement, Orthopedic Surgery Additional Past Surgical History / Comment(s): abd adhesion repair x 3, breast lumpectomies for blood clots 1974 in office, back injections Back surgery x2, Cervical fusion 2017. Lt Total shoulder, bilat Total knees. Past Anesthesia/Blood Transfusion Reactions: No Reported Reaction Additional Past Anesthesia/Blood Transfusion Reaction / Comment(s): STATES SHE IS CLAUSTROPHOBIC Past Psychological History: ADD/ADHD, Anxiety Smoking Status: Former smoker Past Alcohol Use History: Occasional Past Drug Use History: None Reported ALLERGIES: as per EMR. CHEMICAL DEPENDENCY HISTORY: as per HPI. FAMILY PSYCHIATRIC/SUBSTANCE USE HISTORY: Denies SOCIAL HISTORY: Patient was born and raised in [facility]. 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 States that she currently lives in an apartment, she is single she has 2 kids, she denies any legal history. MENTAL STATUS EXAM: General Appearance: Patient appears to be argumentative, stated age is alert, difficult to redirect. Patient appears to have fair hygiene and grooming wearing hospital gown with fair eye contact. Behavior: Patient is calmly lying in bed without any agitated behavior. Intense, argumentative and paranoid Speech: Patient's speech is fluent and nonpressured. Rapid speech Mood/Affect: Patient reports their mood is "ok", affect is congruent and labile Suicidality/Homicidality: Patient denies having any suicidal or homicidal ideation intent or plan. Perceptions: Patient denies any visual hallucinations and denies any auditory hallucinations Though content/process: Rambling, illogical at times. Endorsing paranoia towards others. Memory and concentration: AOX3, grossly intact for the purposes of this session. Can spell "WORLD" backwards Judgment and insight: Poor IMPRESSIONS: Bipolar disorder with psychotic features PLAN: -At this time patient DOES meet criteria for inpatient geriatric psychiatric admission/transfer. -Patient DOES NOT have decision making capacity at this time and is unable to reason through and communicate/appreciate the risks, benefits and alternatives to treatment. -Delirium precautions recommended with patient including - avoiding use of narcotics and BEET WORKER sedatives, limit anticholinergic medications when possible, frequent re-orientation, minimize use of restraints, open window shades during the day and close them at night -Would recommend the following medication changes/additions: Can continue with Seroquel 100 mg nightly for psychosis/mood stabilization/sleep. Added Seroquel 25 mg 3 times daily as needed for psychosis/agitation. Also added Haldol as needed for severe agitation. -Continue 1:1 sitter for safety -Cannot leave AMA at this time. Patient will need a petition and certification if attempting to leave AMA. -When medically stable, patient is eligible for transfer to a [facility] when available and accepted -Communicated plan to patient's nurse -Psychiatry will sign off at this time -Please contact with any questions. 08/15/24 13:28
--- NOTE | 2024-08-15 17:11 | CA ---
Transthoracic Echo Report Name: April Tierney Age: 73 Gender: F : 1950 Exam Date: 08/15/2024 11:14 Exam Location: [facility] Ht (in): 61 Wt (lb): 140 Ordering Physician: Spring Freitas Attending/Referring Phys: [id number], Fortino Barback Jeanie Lockhart RDCS Procedure CPT: Indications: LV function, CP Cardiac Hx: Technical Quality: Fair Contrast 1: Total Dose (mL): Contrast 2: Total Dose (mL): MEASUREMENTS (Male / Female) Normal Values 2D ECHO LV Diastolic Diameter PLAX 3.6 cm 4.2 - 5.9 / 3.9 - 5.3 cm LV Systolic Diameter PLAX 2.4 cm IVS Diastolic Thickness 1.2 cm 0.6 - 1.0 / 0.6 - 0.9 cm LVPW Diastolic Thickness 1.1 cm 0.6 - 1.0 / 0.6 - 0.9 cm LV Relative Wall Thickness 0.7 RV Internal Dim ED PLAX 3.3 cm LA Systolic Diameter LX 3.4 cm 3.0 - 4.0 / 2.7 - 3.8 cm LV Diastolic Volume MOD 4C 75.3 cm??? LV Systolic Volume MOD 4C 43.7 cm??? LV Ejection Fraction MOD 4C 42.0 % LV Cardiac Index MOD 4C 1458.9 cm???/min???m??? LV Diastolic Length 4C 6.4 cm LV Systolic Length 4C 5.3 cm LV Diastolic Volume MOD 2C 81.9 cm??? LV Systolic Volume MOD 2C 45.2 cm??? LV Ejection Fraction MOD 2C 44.8 % LV Cardiac Index MOD 2C 1691.2 cm???/min???m??? LV Diastolic Length 2C 6.2 cm LV Systolic Length 2C 5.5 cm LA Volume 35.4 cm??? 18 - 58 / 22 - 52 cm??? LA Volume Index 21.2 cm???/m??? 16 - 28 cm???/m??? M-MODE Aortic Root Diameter MM 2.9 cm AV Cusp Separation MM 1.9 cm DOPPLER AV Peak Velocity 106.8 cm/s AV Peak Gradient 4.6 mmHg MV Area PHT 2.4 cm??? Mitral E Point Velocity 49.7 cm/s Mitral A Point Velocity 100.4 cm/s Mitral E to A Ratio 0.5 MV Deceleration Time 322.4 ms TR Peak Velocity 242.3 cm/s TR Peak Gradient 23.5 mmHg Right Ventricular Systolic Press 32.0 mmHg FINDINGS Left Ventricle Left ventricular ejection fraction is estimated at 50-55 %. Small left ventricular cavity. Mildly increased septal wall thickness. Mildly increased posterior wall thickness. No obvious regional wall motion abnormalities. Right Ventricle Mild right ventricular dilatation. Right ventricular systolic pressure within normal limits. Right Atrium Normal right atrial size. No right atrial thrombus or mass seen. Left Atrium Normal left atrial size. No left atrial thrombus or mass present. Mitral Valve Structurally normal mitral valve. No mitral stenosis, regurgitation or prolapse. Aortic Valve Trileaflet aortic valve. Aortic valve sclerosis. No aortic valve stenosis or regurgitation. Tricuspid Valve Structurally normal tricuspid valve. [id number] tricuspid regurgitation. Pulmonic Valve Structurally normal pulmonic valve. No pulmonic regurgitation. Pericardium No pericardial or pleural effusion. Aorta Normal size aortic root and proximal ascending aorta. CONCLUSIONS Normal LV systolic function Mild to moderate tricuspid regurgitation Previewed by: Dr. Attila Ontiveros MD (Electronically Signed) Final Date: 15 August 2024 17:10
[2024-08-15] MEDS: BUDESONIDE 0.5 MG/2 ML NEBU INHALATION SCH (19:50)
[2024-08-15] MEDS: IPRATROPIUM-ALBUTEROL 3 ML NEB INHALATION SCH (19:50)
[2024-08-15] MEDS ORDERED: ATORVASTATIN 40 MG TAB PO SCH (21:00)
[2024-08-15] MEDS ORDERED: QUEtiapine 100 MG TAB PO SCH (21:00)
[2024-08-16] MEDS: FAMOTIDINE 20 MG TAB PO SCH (09:35)
[2024-08-16] MEDS: cloNIDine HCL 0.1 MG TAB PO SCH (09:35)
--- NOTE | 2024-08-16 09:43 | P.PN ---
Subjective HISTORY OF PRESENT ILLNESS: This is a 73-year-old female with a past medical history significant for hypertension and hyperlipidemia. Patient used to follow in the office with Dr. Ontiveros but has not been seen since 2014. We have been asked to see the patient in consultation for chest pain and hypertension. Patient examined at the bedside in the emergency room. The patient was brought to the ER by law enforcement due to a legal pickup order due to declining mental health. The patient has apparently been followed closely outpatient by adult protective services. Patient states that people have been stealing her medications. She is currently awaiting psychiatry evaluation. At the time of examination, the patient denies any chest pain or pressure. She denies any shortness of breath. She does appear slightly agitated at the time of examination when talking about her personal situation. Blood pressures are elevated with a systolic between [id number]. DIAGNOSTICS: - EKG reveals sinus mechanism with nonspecific ST-T wave changes - Chest xray right lower lung atelectasis with no acute process noted - Laboratory data: WBC 11.4. Hemoglobin 17.2. Platelet count 326. D-dimer 0.36. Sodium 139. Potassium 4.9. BUN 23. Creatinine 0.95. Magnesium 1.8. Troponin negative x 3. - Current home cardiac medications include Catapres 0.1 mg 3 times daily, Lipitor 40 mg at night, metoprolol succinate 100 mg daily, Lasix 20 mg daily, losartan 100 mg daily, amlodipine 5 mg twice a day - No previous echocardiogram, stress test, or cardiac catheterization available in EMR for review 08/16/2024 Patient examined this morning at the bedside. Patient currently denies chest pain or pressure. She denies shortness of breath. Patient's blood pressure remains elevated this morning. Echocardiogram completed revealing ejection fraction 50 to 55% with mild to moderate TR. PHYSICAL EXAM: VITAL SIGNS: Reviewed. GENERAL: Well-developed in no acute distress. HEENT: Head is normocephalic. Pupils are equal, round. Sclerae anicteric. Mucous membranes of the mouth are moist. Neck supple. No JVD or thyromegaly LUNGS: Respirations even and unlabored. Lungs essentially clear to auscultation bilaterally. HEART: Regular rate and rhythm. S1 and S2 heard. ABDOMEN: Soft. Nondistended. Nontender. EXTREMITIES: Normal range of motion. No clubbing or cyanosis. Peripheral pulses intact. No lower extremity edema NEUROLOGIC: Awake and alert. ASSESSMENT: Altered mental status; bipolar disorder with psychotic features Hypertension Hyperlipidemia PLAN: Patient states she cannot take amlodipine due to swelling. Will discontinue. Increase clonidine to 0.3 mg 3 times a day Continue to monitor blood pressure Patient is currently stable for discharge from a cardiac standpoint Nurse practitioner note has been reviewed by physician. Signing provider agrees with the documented findings, assessment, and plan of care documented by ELECTRO MECHANICAL ENGINEER as a scribe. Objective - Vital Signs Vital signs: Vital Signs Temp 98.1 F 08/16/24 07:00 Pulse 105 H 08/16/24 09:21 Resp 15 08/16/24 07:00 BP 174/88 08/16/24 07:00 Pulse Ox 98 08/16/24 09:08 FiO2 Intake & Output 08/15/24 08/16/24 08/16/24 18:59 06:59 18:59 Weight 63.503 kg Other: # Voids 1 - Labs CBC & Chem 7: 08/14/24 21:26 08/14/24 21:26
--- NOTE | 2024-08-16 18:14 | CT ---
EXAMINATION TYPE: CT chest wo con DATE OF EXAM: 08/16/2024 4:46 PM COMPARISON: 08/14/2024, 04/08/2022 CLINICAL INDICATION: Female, 73 years old with history of cp; PHH, chest pain TECHNIQUE: Multiple axial images were obtained through the chest. Sagittal and coronal reformats were created for review. MIP was performed on a separate workstation. Contrast used: mL of (None if empty) Oral contrast used: (None if empty) CT DLP: 383 mGycm, Automated exposure control for dose reduction was used. FINDINGS: LUNGS/ PLEURA: No focal consolidation, pneumothorax or pleural effusion. 3 mm nodule right upper iliana g series 3 image 22 AIRWAY: Patent and unremarkable. HEART: Size within normal limits.Atherosclerosis of the arterial vasculature. MEDIASTINUM: No gross evidence of adenopathy. VASCULATURE: No aortic aneurysm. MUSCULOSKELETAL: No acute osseous abnormalities left shoulder arthroplasty partially visualized parti ally visualized fixation hardware in the spine. SOFT TISSUES/LYMPH NODES: Unremarkable. LOWER NECK: No significant findings. UPPER ABDOMEN: No significant findings. IMPRESSION: No evidence for acute process. Follow up recommendations for incidental pulmonary nodules, if there are any, are per [employer] or [employer]. [email or web address]://radiopaedia.org/articles/kmtvqouxnt-[email or web address]?lang=us [facility], , 08/16/2024 6:12 PM
[2024-08-16 19:48] VITALS: TEMP 97.7
[2024-08-17 02:12] VITALS: BP 137/92; PULSE 70; RESP 18
--- NOTE | 2024-08-17 02:19 | HP ---
HISTORY AND PHYSICAL HISTORY OF PRESENT ILLNESS: The patient is seen in the emergency room for atypical chest pain with a pressure, hypertension acceleration. Some nitroglycerin helped her. She has been in the hospital for 3 days for psychiatric issues, unclear why that happened. She is working up for chest pain at this time. Cardiology has been consulted. So far, troponins are negative. White count 11, hemoglobin is 13.9, platelets 269. UA shows trace protein and glucose. Drugs, she is positive for benzos, otherwise negative. Labs were reviewed. BUN is 20, creatinine 0.75, glucose 115. COVID negative. She was admitted for possible altered mental status. She is acting normal in my opinion. PHYSICAL EXAMINATION: GENERAL: She is alert and oriented x3, giving appropriate answers. CARDIOVASCULAR: S1, S2. LUNGS: Scattered rhonchi and wheeze. HEMATOLOGY: Negative Homans. PSYCH: Fair mood and affect. NEUROLOGIC: Alert and oriented x3. ASSESSMENT AND PLAN: Rule out pulmonary embolism, hypertension acceleration will have to be treated with medications that could be causing her some chest pain as well as she has been off her updrafts, oxygen, etc. what she has done here, so could be causing chest pain from that. Wait for psych. Await for Cardiology. See H and P done on 08/15/2024. MMODL / IJN: [id number] /
[2024-08-21] MEDS ORDERED: ERGOCALCIFEROL 1,250 MCG (50,000 IU) CAPSULE PO SCH (09:00)
== END 2024-08-17 04:00 ==
LOC: EC 20:30 → 6NMEDSUR 08-14 23:06
PROVIDERS: ADMIT Family Medicine; ATTEND Family Medicine
DX: R07.89 Other chest pain (principal); I10 Essential (primary) hypertension; R41.82 Altered mental status, unspecified; F31.9 Bipolar disorder, unspecified; J98.11 Atelectasis; J44.89 Other specified chronic obstructive pulmonary disease; G40.909 Epilepsy, unspecified, not intractable, without status epilepticus; E78.5 Hyperlipidemia, unspecified; E03.9 Hypothyroidism, unspecified; K21.9 Gastro-esophageal reflux disease without esophagitis; M79.7 Fibromyalgia; F41.9 Anxiety disorder, unspecified; F90.9 Attention-deficit hyperactivity disorder, unspecified type; G47.30 Sleep apnea, unspecified; G89.29 Other chronic pain; Z87.891 Personal history of nicotine dependence; Z82.49 Family history of ischemic heart disease and other diseases of the circulatory system; Z79.899 Other long term (current) drug therapy; Z79.890 Hormone replacement therapy
CPT/HCPCS: 99285; 36415; 94640 ×2; 94760; 93005; 93306; 80053; 84443; 84484 ×2; 85025; 81003; 80306; 80143; 80320; 87635; 80179; 71250; G0378 ×4; J1650